=== PATIENT | female | born 1975 | race Caucasian/White ===

== ENCOUNTER 2023-11-05 05:51 | Emergency (ER) | payer MEDICAID ==
[~2023-11-05] VITALS: Ht 157.5 cm; Wt 67.3 kg
[~2023-11-05 05:51] MED LIST: 5-HY100C PO; DIPH25CA83 PO; NITR100C6 PO
[2023-11-05 06:03] VITALS: BP 144/100; PULSE 109; TEMP 98; O2SAT 99
[2023-11-05] MEDS ORDERED: ketorolac trometh. 30mg/ml inj. IV ONE (07:15)
[2023-11-05] MEDS ORDERED: ketorolac trometh inj. 60 MG/2 ML VIAL IM ONE (07:45)
[2023-11-05] MEDS: amoxicillin 250mg capsule PO ONE (08:20)
[2023-11-05 08:22] VITALS: RESP 18
[2023-11-05] MEDS: ketorolac trometh. 30mg/ml inj. IM ONE (08:22)
[2023-11-05] MEDS ORDERED: AMOX500C2 PO (08:32)
== END 2023-11-05 08:52 | disposition home or self-care (01) ==
LOC: ER 05:52
DX: K08.89 Other specified disorders of teeth and supporting structures (principal); F17.200 Nicotine dependence, unspecified, uncomplicated; Z79.899 Other long term (current) drug therapy
CPT/HCPCS: 96372; 99283; J1885

== ENCOUNTER 2023-12-21 07:41 | Inpatient (IN) | payer MEDICAID ==
[~2023-12-21] VITALS: Ht 157.5 cm; Wt 69.5 kg
[2023-12-21 08:02] VITALS: TEMP 97.8
[2023-12-21 08:46] LABS: BASOPHILS % (AUTO) 0.6 % (0-1); EOSINOPHILS # (AUTO) 0.1 X10'3 (0-0.9); EOSINOPHILS % (AUTO) 1.1 % (0-6); HEMATOCRIT 45.7 % (35.0-45.0); HEMOGLOBIN 15.1 g/dl (12.0-16.0); LYMPHOCYTES # (AUTO) 1.6 X10'3 (1.1-4.8); LYMPHOCYTES % (AUTO) 18.1 % (21-51); MEAN CORPUSCULAR HEMOGLOBIN 33.1 PG (27.0-31.0); MEAN CORPUSCULAR HGB CONC 33.1 g/dL (33.0-36.5); MEAN CORPUSCULAR VOLUME 99.9 FL (78-98); MEAN PLATELET VOLUME 8.9 FL (7.4-10.4); MONOCYTES # (AUTO) 0.6 X10'3 (0-0.9); MONOCYTES % (AUTO) 7.1 % (2-12); NEUTROPHILS # (AUTO) 6.4 X10'3 (1.8-7.7); NEUTROPHILS % (AUTO) 73.1 % (42-75); PLATELET COUNT 208 X10'3 (140-440); RED BLOOD COUNT 4.57 X10'6 (4.20-5.60); RED CELL DISTRIBUTION WIDTH 14.7 % (11.5-14.5); WHITE BLOOD COUNT 8.7 X10'3 (4.5-11.0)
[2023-12-21] MEDS: aspirin 325mg tablet PO ONE (08:55)
[2023-12-21] MEDS ORDERED: LORazepam 2 mg/ml vial IM ONE (08:55)
[2023-12-21 09:16] LABS: ALANINE AMINOTRANSFERASE 34 U/L (12-78); ALBUMIN 3.2 G/DL (3.4-5.0); ALBUMIN/GLOBULIN RATIO 0.8 (1.1-1.5); ALKALINE PHOSPHATASE 98 IU/L (46-116); ANION GAP 9 (8-16); ASPARTATE AMINO TRANSFERASE 30 U/L (10-37); BILIRUBIN,DIRECT 0.2 MG/DL (0-0.3); BILIRUBIN,TOTAL 0.7 MG/DL (0.1-1.0); BLOOD UREA NITROGEN 10 MG/DL (7-18); BUN/CREATININE RATIO 11.5 (10.0-20.0); CALCIUM 8.8 MG/DL (8.5-10.1); CHLORIDE 104 MMOL/L (99-107); CREATININE 0.87 MG/DL (0.40-0.90); GLUCOSE 121 MG/DL (70-104); POTASSIUM 4.1 MMOL/L (3.5-5.1); PRO BRAIN NATRIURETIC PEPTIDE 7462 PG/ML (0-125); SODIUM 141 MMOL/L (135-145); THYROID STIMULATING HORMONE 5.03 ulU/ml (0.34-4.50); TOTAL CARBON DIOXIDE 28.3 MMOL/L (24-32); eCRCL 63 ML/MIN; eGFR 70 ML/MIN
[2023-12-21] MEDS ORDERED: enoxaparin 100mg/ml syringe SUBCUT ONE (09:35)
[2023-12-21] MEDS ORDERED: iohexol 350MG/ML 100ml bottle IV ONE (09:41)
[2023-12-21] MEDS: LORazepam 2 mg/ml vial IM ONE (09:42)
[2023-12-21] MEDS: nitroGLYCERIN 0.4mg/hour patch TD ONE (09:54)
[2023-12-21] MEDS: enoxaparin 60mg/0.6ml syringe SUBCUT ONE (09:55)
[2023-12-21] MEDS: enalaprilat dihydrate 2.5mg/2ml vial IV ONE (09:59)
[2023-12-21 10:24] LABS: URINE AMPHETAMINE SCREEN POSITIVE (Neg); URINE BARBITUATE SCREEN NEGATIVE (Neg); URINE BENZODIAZEPINES SCREEN NEGATIVE (Neg); URINE CANNABINOID SCREEN NEGATIVE (Neg); URINE COCAINE SCREEN POSITIVE (Neg); URINE METHADONE SCREEN NEGATIVE (Neg); URINE OPIATE SCREEN NEGATIVE (Neg); URINE PHENCYCLIDINE SCREEN NEGATIVE (Neg)
[2023-12-21 10:57] LABS: HCG SERUM QL NEGATIVE
[2023-12-21] MEDS ORDERED: aminophylline 250mg/10ml inj. IV PRN (12:35)
[2023-12-21] MEDS ORDERED: haloperidol 5mg tablet PO PRN (12:35)
[2023-12-21] MEDS ORDERED: potassium Cl 20 mEq SR tablet PO PRN ×2 (12:35)
[2023-12-21] MEDS ORDERED: mag hydrox/Alum hydrox/simeth 30ml oral suspension PO PRN (12:35)
[2023-12-21] MEDS ORDERED: regadenoson 0.4mg/5ml syringe IV PRN (12:35)
[2023-12-21] MEDS ORDERED: magnesium 2GM in 50ml NS 50 ML IV PRN (12:35)
[2023-12-21] MEDS ORDERED: metoprolol tartrate 1mg/ml inj IV PRN (12:35)
[2023-12-21] MEDS ORDERED: potassium Cl 40MEQ/1/2NS 520ml 520 ML IV PRN (12:35)
[2023-12-21] MEDS ORDERED: nitroGLYCERIN 0.4mg SUBLingual tab SL PRN (12:35)
[2023-12-21] MEDS ORDERED: ondansetron/PF 4mg/2ml inj IV PRN (12:35)
[2023-12-21] MEDS ORDERED: magnesium 4gm in 100ml NS 100 ML IV PRN (12:35)
[2023-12-21] MEDS ORDERED: LORazepam 1 MG tablet PO PRN (12:35)
[2023-12-21 13:24] VITALS: BP 125/89; PULSE 99; RESP 14; O2SAT 100
[2023-12-21] MEDS: acetaminophen 325mg tablet PO PRN (16:49)
[2023-12-21] MEDS ORDERED: enoxaparin 40mg/0.4ml syringe SQ SCH (20:00)
[2023-12-21] MEDS ORDERED: K and/or MAG REPLACEMENT MC SCH (20:00)
[2023-12-21] MEDS ORDERED: docusate sod 100mg capsule PO SCH (20:00)
[2023-12-21] MEDS ORDERED: carVEDilol 3.125mg tablet PO SCH (20:00)
[2023-12-22] MEDS ORDERED: nicotine 14mg patch - 24hr TD SCH (08:00)
[2023-12-22] MEDS ORDERED: losartan 50mg tablet PO SCH (08:00)
[2023-12-23 14:31] LABS: HBSAG SCREEN Negative (Negative); HEP B CORE AB, IGM Negative (Negative); HEP B CORE AB, TOT Negative (Negative)
== END 2023-12-21 18:05 | disposition left against medical advice (07) | DRG 194 ==
LOC: ER 07:44 → ED HOLD 12:46 → PCU 3S 16:16
PROVIDERS: ADMIT Family Medicine; ATTEND Family Medicine
PROC: B32T1ZZ Computerized Tomography (CT Scan) of Left Pulmonary Artery using Low Osmolar Contrast (ICD-10-PCS; principal; 2023-12-21)
PROC: B3201ZZ Computerized Tomography (CT Scan) of Thoracic Aorta using Low Osmolar Contrast (ICD-10-PCS; 2023-12-21)
PROC: B32S1ZZ Computerized Tomography (CT Scan) of Right Pulmonary Artery using Low Osmolar Contrast (ICD-10-PCS; 2023-12-21)
DX: I11.0 Hypertensive heart disease with heart failure (principal); I27.20 Pulmonary hypertension, unspecified; I50.21 Acute systolic (congestive) heart failure; E06.3 Autoimmune thyroiditis; F15.10 Other stimulant abuse, uncomplicated; F14.10 Cocaine abuse, uncomplicated; F10.10 Alcohol abuse, uncomplicated; F17.210 Nicotine dependence, cigarettes, uncomplicated; Z53.21 Procedure and treatment not carried out due to patient leaving prior to being seen by health care provider; Z87.442 Personal history of urinary calculi
CPT/HCPCS: 36415; 71045; 71275; 80048; 80076; 80305; 83880; 84443; 84484; 84703; 85025; 86704; 86705; 87081; 87340; 93005; 93306; 96372; 96374; 99285; G0378; J1650; J2060; J3490; J7030; Q9967

== ENCOUNTER 2024-12-10 20:05 | Inpatient (IN) | payer MEDICAID ==
[~2024-12-10] VITALS: Ht 160 cm; Wt 78.0 kg
--- NOTE | 2024-12-10 20:16 | ELECTROCARDIOGRAPH REPORT ---
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
[2024-12-10 20:38] LABS: BASOPHILS # (AUTO) 0.1 X10'3 (0-0.2); BASOPHILS % (AUTO) 0.7 % (0-1); EOSINOPHILS # (AUTO) 0.1 X10'3 (0-0.9); EOSINOPHILS % (AUTO) 0.9 % (0-6); HEMATOCRIT 47.9 % (35.0-45.0); HEMOGLOBIN 16.1 g/dl (12.0-16.0); LYMPHOCYTES # (AUTO) 2.7 X10'3 (1.1-4.8); LYMPHOCYTES % (AUTO) 29.4 % (21-51); MEAN CORPUSCULAR HEMOGLOBIN 31.9 PG (27.0-31.0); MEAN CORPUSCULAR HGB CONC 33.6 g/dL (33.0-36.5); MEAN PLATELET VOLUME 9.1 FL (7.4-10.4); MONOCYTES # (AUTO) 0.6 X10'3 (0-0.9); MONOCYTES % (AUTO) 6.6 % (2-12); NEUTROPHILS # (AUTO) 5.7 X10'3 (1.8-7.7); NEUTROPHILS % (AUTO) 62.4 % (42-75); PLATELET COUNT 190 X10'3 (140-440); RED BLOOD COUNT 5.04 X10'6 (4.20-5.60); RED CELL DISTRIBUTION WIDTH 16.6 % (11.5-14.5); WHITE BLOOD COUNT 9.2 X10'3 (4.5-11.0)
--- NOTE | 2024-12-10 20:48 | Physician Documentation ---
History of Present Illness ~ Chief Complaint: Shortness of Breath Stated Complaint: SOB Time Seen by MD: 20:35 Primary Medical Doctor: Juan Diego Source: patient Mode of Arrival: POV Exam Limitations: no limitations HPI Chief Complaint: Shortness a breath Caveat: None Independent Historians: None History of Present Illness: Patient is a 49-year-old woman with history of significant past alcohol use and tobacco use. Patient states that she had a cardiac echo done at [facility] earlier today in the ski technician told her to immediately go to the ER. Set up going to [facility] she decided to come here. Patient has been experiencing severe lower extremity edema and discoloration of her legs and feet for six months. Patient has had months of shortness a breath that has been getting progressively worse. Over the last two weeks her breathing has gotten severely difficult with any little exertion. Patient denies any chest pain. Patient has had a cough for one month that she describes as tight with the occasional yellow sputum. No fever. Patient leak currently states that she drinks 1-2 shots of alcohol a day and occasional cigarette. Review of systems: All systems were reviewed and are negative except for what is indicated in the history of present illness. Past Medical History: Tobacco use, alcoholism, coronary artery disease, acute [place] Past Surgical History: Noncontributory Social History: Alcohol use, tobacco use Medications: Reviewed as documented Nursing Notes Allergies: Reviewed as documented in Nursing Notes Medication Reconciliation Allergies: Coded Allergies: No Known Allergies (Unverified , 12/21/23) Scheduled Furosemide* (Lasix*), 1 TAB PO DAILY, (Reported) Methimazole (methimazole tablet), 2 TAB PO DAILY, (Reported) Naltrexone Hcl (Naltrexone Hcl), 1 TAB PO DAILY, (Reported) Nicotine (Nicotine), 1 PATCH TOP DAILY, (Reported) Tiotropium [place] (Spiriva), 1 CAP INH DAILY, (Reported) levothyroxine sodium* (Synthroid*), 5 TAB PO DAILY, (Reported) Miscellaneous Medications Albuterol (Albuterol), (Reported) Epinephrine (Primatene Mist), (Reported) Tiotropium Br/Olodaterol HCl (Stiolto Respimat Inhal Foster), (Reported) Varenicline Tartrate (Varenicline), (Reported) Past Medical History Past Medical History: Anemia, Kidney Stones, Thyroid (unspecified), MRSA Abscess Past Surgical History: noncontributory Patient History: Graves' disease MOTHER, Age: 75 Ileana thyroiditis MOTHER, Age: 75 Alcohol Use: Abuse Drug Use: cocaine Lives with: Family Lives In: Home Occupation: employed Review of Systems All Other Systems at this time: Reviewed and Negative ROS Patient denies any other acute symptoms other than above. All other systems are negative Physical Exam Vital Signs: RN Vital Signs have been reviewed: Yes, Temperature: 98.5, Source: Temporal, Heart Rate: 106, Respiratory Rate: 20, BP: 169/107, Pulse Oximetry: 98, Weight: 65.200 Oxygen Flow Rate: 0 Pulse Oximetry Reflects: adequate oxygenation Physical Exam General Appearance: MILD DISTRESS, ACUTELY AND CHRONICALLY ILL-APPEARING HEENT: Normal OP, moist oral mucosa, PERRL, EOMI Neck: supple, normal ROM, trachea midline Pulmonary: No respiratory distress, CTA, BS equal Cardiac: 4/6 SYSTOLIC MURMUR, TACHYCARDIC, REGULAR RHYTHM, NO RUB OR GALLOP GI: nondistended, soft, nontender, normal bowel sounds, no guarding, no rebound Extremities: DECREASED RANGE OF MOTION OF BOTH LOWER EXTREMITIES SECONDARY TO SWELLING. PATIENT'S LEGS AND FEET ARE A DEEP VIOLACEOUS COLOR FROM THE HIPS GLEN N. TOES ARE PURPLE. SKIN IS WARM TO TOUCH. NO BLISTERS OR RASHES. Skin: intact, dry, warm, no rashes, SEE EXTREMITY EXAM ABOVE FOR COLOR Neuro: AAOx3, speech is clear, no focal motor weakness Psych: normal affect, good eye contact, no apparent hallucination, normal speech Progress Results/Orders Results/Orders Orders - BARRY DUPONT MD Chest,Single View (12/10/24 20:08) Monitor (12/10/24 20:08) Saline Lock (12/10/24 20:08) Oxygen (12/10/24 20:08) Hs Troponin I W Calculations (12/10/24 23:08) Vl Venous (12/10/24 21:59) Page Hospitalist (12/10/24 22:18) Fill Out Med Reconciliation (12/10/24 22:18) Completed Orders - BARRY DUPONT MD Chest,Single View (12/10/24 20:08) Cbc/Diff (12/10/24 20:08) PBNP (12/10/24 20:08) Electrocardiogram (12/10/24 20:08) Hs Troponin I W Calculations (12/10/24 20:08) Hs Troponin I W Calculations (12/10/24 22:08) Pt Inr (12/10/24 20:41) PTT (12/10/24 20:41) CMP (12/10/24 20:22) Ua With Microscopic (12/10/24 21:00) Ceftriaxone/Y9w-Huyrodcf 1gm (Rocephin 1 (12/10/24 22:20) Vital Signs 12/10/24 12/10/24 12/10/24 20:24 21:07 21:15 Temp 98.5 98.5 Pulse 106 103 Resp 20 15 16 B/P (MAP) 169/107 157/118 (131) Pulse Ox 98 100 O2 Flow Rate 0 0 Laboratory Tests Test 12/10/24 20:22 12/10/24 20:58 12/10/24 21:00 White Blood Count 9.2 Red Blood Count 5.04 Hemoglobin 16.1 H Hematocrit 47.9 H Mean Corpuscular Volume 95.0 Mean Corpuscular Hemoglobin 31.9 H Mean Corpuscular Hemoglobin Concent 33.6 Red Cell Distribution Width 16.6 H Platelet Count 190 Mean Platelet Volume 9.1 Neutrophils (%) (Auto) 62.4 Lymphocytes (%) (Auto) 29.4 Monocytes (%) (Auto) 6.6 Eosinophils (%) (Auto) 0.9 Basophils (%) (Auto) 0.7 Neutrophils # (Auto) 5.7 Lymphocytes # (Auto) 2.7 Monocytes # (Auto) 0.6 Eosinophils # (Auto) 0.1 Basophils # (Auto) 0.1 CBC Comment Sodium Level 143 Potassium Level 4.4 Chloride Level 106 Carbon Dioxide Level 30.3 Anion Gap 7 L Blood Urea Nitrogen 22 H Creatinine 1.41 H Estimated GFR/1.73 m2 40 BUN/Creatinine Ratio 15.6 Glucose Level 103 Calcium Level 8.8 Total Bilirubin 0.7 Aspartate Amino Transf (AST/SGOT) 38 H Alanine Aminotransferase (ALT/SGPT) 29 Alkaline Phosphatase 148 H Troponin I High Sensitivity 32 31 Pro-B-Type Natriuretic Peptide 47428 H Total Protein 6.6 Albumin 3.1 L Globulin 3.5 Albumin/Globulin Ratio 0.9 L Chemistry Comments Prothrombin Time 11.9 INR International Normalized Ratio 1.2 Activated Partial Thromboplast Time 28 Coagulation Comments Troponin I High Sens Percent Delta 3 Troponin I Hi Sens Absolute Change -1 Urine Specimen Description Cln catch midstream Urine Color Yellow Urine Clarity Clear Urine pH 6.0 Urine Specific [place] >=1.030 Urine Protein 100 H Urine Glucose (UA) Negative Urine Ketones Negative Urine Occult Blood Small Urine Nitrite Positive H Urine Bilirubin Negative Urine Urobilinogen 0.2 Urine Leukocyte Esterase Negative Urine RBC 0-2 Urine WBC 5-10 H Urine Squamous Epithelial Cells Few Urine Transitional Epithelial Cells Few Urine Bacteria 4+ Urine Mucus Few Volume Urine Centrifuged 10 ml Urine Comment Drug Screen Comment Medical Decision Making Additional info obtained from: old records Findings Differential diagnosis includes but is not limited to: DVT, CONGESTIVE HEART FAILURE, VALVULAR HEART DISEASE, ACUTE KIDNEY INJURY, HEPATIC FAILURE EKG independent interpretation: Performed at 8:13 p.m.. Sinus tachycardia, heart rate 105 left atrial enlargement, RVH, nonspecific ST changes Chest x-ray, single view, indication: SHORTNESS OF THE BREATH Independent interpretation: Cardiomegaly, mild pulmonary vascular congestion, no pleural effusion. Laboratory data independent interpretation: CBC: CBC is unremarkable. Hemoglobin is mildly elevated at 16.1 and hematocrit 47.9 CMP: Remarkable for elevated BUN of 22 and elevated creatinine of 1.41. Toxicology: 1st troponin: 31 Pro BNP: 16410 Urinalysis: Emergency department course/medical decision-making: Patient presents with dyspnea and severe dyspnea on exertion. Patient appears to be in congestive heart failure although she is not requiring oxygen. [facility] admission I and cardiac echo in the morning. Test results and treatment plan reviewed with the patient. Incidentally the patient appears to have a urinary tract infection. Patient will be given IV Rocephin. Patient isn't septic. Test results and treatment plan reviewed with the patient. Consultation/communications: 10:50 p.m.: Case discussed with the hospitalist resident, Dr. Muir. She will evaluate the patient for admission. Departure Time of Disposition: 22:17 Disposition: ADMITTED INPATIENT Admitted to Inpatient Unit: to hospitalist Admission Level of Care: Med/Surg with Tele Impression: Primary Impression: Acute congestive heart failure Qualified Codes: I50.21 - Acute systolic (congestive) heart failure Additional Impression: Urinary tract infection Qualified Codes: N39.0 - Urinary tract infection, site not specified Condition: Guarded Referrals: NO PRIMARY CARE PROVIDER (PCP) Education Educated: Patient Educated regarding: diagnosis, treatment Signature Scribe Signature: No scribe Attestation: No scribe BARRY DUPONT MD Dec 10, 2024 20:48
[2024-12-10 20:53] LABS: ALBUMIN 3.1 G/DL (3.4-5.0); ANION GAP 7 (8-16); BLOOD UREA NITROGEN 22 MG/DL (7-18); BUN/CREATININE RATIO 15.6 (10.0-20.0); CALCIUM 8.8 MG/DL (8.5-10.1); CHLORIDE 106 MMOL/L (99-107); CREATININE 1.41 MG/DL (0.40-0.90); GLUCOSE 103 MG/DL (70-104); POTASSIUM 4.4 MMOL/L (3.5-5.1); PRO BRAIN NATRIURETIC PEPTIDE 14126 PG/ML (0-125); SODIUM 143 MMOL/L (135-145); TOTAL CARBON DIOXIDE 30.3 MMOL/L (24-32); eCRCL 40 ML/MIN; eGFR 40 ML/MIN
--- NOTE | 2024-12-10 21:10 | RADIOLOGY REPORT ---
CHEST RADIOGRAPH Indication: CP Technique: Single frontal view of the chest was obtained COMPARISON: DI CHEST,SINGLE VIEW on DOS: 12/21/23 FINDINGS: Lines and Tubes: None Lungs: Clear Pleura: No effusion. No pneumothorax. Cardiomediastinal contours: Cardiomegaly. Bones: Unremarkable IMPRESSION: 1. Cardiomegaly
[2024-12-10 21:18] LABS: BILIRUBIN,URINE NEGATIVE (Neg); CLARITY,URINE CLEAR (Clear); COLOR,URINE YELLOW (Yellow); GLUCOSE, URINE NEGATIVE (Neg); KETONES,URINE NEGATIVE (Neg); LEUKOCYTE ESTERASE ,URINE NEGATIVE (Neg); NITRITES, URINE POSITIVE (Neg); OCCULT BLOOD,URINE SMALL (Neg); PROTEIN,URINE 100 mg/dl (Neg); UROBILINOGEN,URINE 0.2 E.U/dL (0.2-1.0)
[2024-12-10 21:22] LABS: ALANINE AMINOTRANSFERASE 29 U/L (12-78); ALBUMIN/GLOBULIN RATIO 0.9 (1.1-1.5); ALKALINE PHOSPHATASE 148 IU/L (46-116); ASPARTATE AMINO TRANSFERASE 38 U/L (10-37); BILIRUBIN,TOTAL 0.7 MG/DL (0.1-1.0); TOTAL PROTEIN 6.6 G/DL (6.4-8.2)
[2024-12-10 21:24] LABS: UA COLLECTION TYPE CLN CATCH MIDSTREAM
[2024-12-10 21:29] LABS: APTT 28 SECONDS (22-32); INR 1.2 INR; PROTHROMBIN TIME 11.9 SECONDS (9.0-12.0)
[2024-12-10 21:31] LABS: BACTERIA,URINE 4+ /HPF (Neg); MUCUS STRANDS FEW /LPF (Neg); RBC,URINE 0-2 /HPF (0-2); SQUAMOUS EPITHELIAL CELL,UR FEW /LPF (FEW); TRANSITIONAL EPI CELLS,URINE FEW /HPF
[2024-12-10] MEDS ORDERED: EPIN11.7 (21:34)
[2024-12-10] MEDS ORDERED: NICO-732 TOP (21:34)
[2024-12-10] MEDS ORDERED: FURO-150 PO (21:34)
[2024-12-10] MEDS ORDERED: TIOT4MIS3 (21:34)
[2024-12-10] MEDS ORDERED: VARE1TAB29 (21:34)
[2024-12-10] MEDS ORDERED: LEVO25TA2 PO (21:34)
[2024-12-10] MEDS ORDERED: ALBU17AE26 (21:34)
[2024-12-10] MEDS ORDERED: NALT50TA5 PO (21:34)
[2024-12-10] MEDS ORDERED: METH-1026 PO (21:34)
[2024-12-10] MEDS ORDERED: TIOT18CA3 INH (21:34)
[2024-12-10] MEDS ORDERED: potassium Cl 20 mEq SR tablet PO PRN ×2 (23:25)
[2024-12-10] MEDS ORDERED: morphine 2 MG/ML inj. syringe IV PRN (23:25)
[2024-12-10] MEDS ORDERED: magnesium sulf-water 2g/50mL 50 ML IV PRN (23:25)
[2024-12-10] MEDS ORDERED: acetaminophen 325mg tablet PO PRN (23:25)
[2024-12-10] MEDS ORDERED: dextrose 50%-water 50ml dispensing syringe IV PRN (23:25)
[2024-12-10] MEDS ORDERED: magnesium sulf-water 4G/100mL 100 ML IV PRN (23:25)
[2024-12-10] MEDS ORDERED: haloperidol lactate 5mg/ml inj IM PRN (23:25)
[2024-12-10] MEDS ORDERED: magnesium hydroxide 30ml (MOM) UD suspension PO PRN (23:25)
[2024-12-10] MEDS ORDERED: haloperidol 5mg tablet PO PRN (23:25)
[2024-12-10] MEDS ORDERED: mag hydrox/Alum hydrox/simeth 30ml oral suspension PO PRN (23:25)
[2024-12-10] MEDS ORDERED: potassium Cl 40MEQ/1/2NS 520ml 520 ML IV PRN (23:25)
[2024-12-10] MEDS ORDERED: LORazepam 2 mg/ml vial IV PRN (23:25)
[2024-12-10 23:26] LABS: URINE AMPHETAMINE SCREEN POSITIVE (Neg); URINE BARBITUATE SCREEN NEGATIVE (Neg); URINE BENZODIAZEPINES SCREEN NEGATIVE (Neg); URINE CANNABINOID SCREEN NEGATIVE (Neg); URINE COCAINE SCREEN NEGATIVE (Neg); URINE METHADONE SCREEN NEGATIVE (Neg); URINE OPIATE SCREEN NEGATIVE (Neg); URINE PHENCYCLIDINE SCREEN NEGATIVE (Neg)
[2024-12-10] MEDS ORDERED: iohexol 350MG/ML 100ml bottle IV ONE (23:37)
--- NOTE | 2024-12-10 23:38 | HISTORY AND PHYSICAL-Residence ---
History & Physical Providers to CC Resident Creating Document: JERRELL GOMEZ, RES CC: ROSALIE MOREIRA MD ~ History of Present Illness Primary Medical Doctor: Juan Diego Reason for Admit\Complaint: Worsening shortness of breaths on exertion History of Present Illness A 43-year-old female with a past medical history of COPD, heart failure with reduced ejection fraction, HTN presented to the ED in view of abnormal echo findings that was done at [facility]. Patient underwent echo this morning which showed hypokinesis/akinesis in one of the heart chambers that the patient is unable to recall. And patient was advised to see emergency department. Patient endorses worsening shortness of breaths on exertion to the point that she feels short of breath walking less than block in contrast to while being able to walk for 6-7 blocks before feeling short of breaths. Patient endorses orthopnea, PND and decreased urine output. Patient denies burning sensation abdominal pain, fever. Patient has while issues edematous bluish discolored lower extremities and upper extremities over the last three weeks. This has been on and off that would go away with no intervention but has been constantly present for the last three weeks. Allergies: Coded Allergies: No Known Allergies (Unverified , 12/21/23) Home Medications Home Medications Active Reported Synthroid* (Levothyroxine Sodium) 25 Mcg Tablet 5 Tab PO DAILY Spiriva (Tiotropium [place]) 18 Mcg Cap.w.dev 1 Cap INH DAILY Primatene Mist (Epinephrine) 0.125 Mg/Actuation Hfa.aer.ad Naltrexone Hcl 50 Mg Tablet 1 Tab PO DAILY methimazole tablet (Methimazole) 5 Mg Tablet 2 Tab PO DAILY Nicotine 21 Mg/24 Hour Patch.td24 1 Patch TOP DAILY Stiolto Respimat Inhal Arnold (Tiotropium Br/Olodaterol HCl) 2.5 Mcg-2.5 Mcg/Actuation Mist.inhal Varenicline (Varenicline Tartrate) 0.5 Mg (11)-1 Mg (42) Tab.ds.pk Albuterol 17 Gm Aerosol Past Medical History Past Medical History Ileana's and Graves disease, scheduled for thyroidectomy [place] COPD Heart failure with a reduced ejection fraction Prediabetes HTN Past Surgical History Surgical History Comment Dental surgeries Family History Family History: Graves' disease MOTHER, Age: 75 Ileana thyroiditis MOTHER, Age: 75 Past Social History Social History Comment Smokes one pack of cigarettes per day for the last 30 years, came down to 1-2 cigarettes per day for the last one month Drinks 1-2 Tequila shots every day Last drink was this morning Consumes methamphetamine yesterday Smoking: Non-Smoker Alcohol Use: Abuse Drug Use: Cocaine Lives with: Family Lives In: Home Occupation: employed ROS ROS All other systems reviewed in full and negative except for the pertinent positives mentioned in the HPI Exam Vitals: Vital Signs Date Time Temp Pulse Resp B/P (MAP) Pulse Ox O2 Delivery O2 Flow Rate FiO2 12/10/24 21:15 98.5 103 16 157/118 (131) 100 0 General: General: Alert, awake, oriented, not in acute distress HEENT: PERRLA, no icterus, pallor, lymphadenopathy, carotid bruit, absent multiple teeth Respiratory system: Bilateral vesicular breath sounds heard, bilateral basal Creps, crackles heard in bilateral all lung regions CVS: Sinus tachycardia, S1-S2 heard, grade 4/6 holosystolic murmur present in the mitral area that is radiating to the tricuspid area GI: Soft, nontender, no organomegaly, no guarding/rigidity, bowel sounds present Neuro: No focal neurological deficits present Extremities: Violaceous erythematous, 3+ pitting edema present in bilateral feet, blackish discoloration present, bluish discoloration and erythematous fingers present in bilateral upper extremities Skin: Warm and dry Diagnostic Data Last Recorded Lab Results: 12/10/24202112/10/242021 Diagnostic Data: Laboratory Tests Test 12/10/24 20:58 Prothrombin Time 11.9 SECONDS (9.0-12.0) INR International Normalized Ratio 1.2 INR Activated Partial Thromboplast Time 28 SECONDS (22-32) Coagulation Comments Advance Care Planning Advanced Care plannin - 30 Minutes (I spent 20 minutes discussing various resuscitative measures and the patient decided to be full code) Additional Plan Assessment: A 49-year-old female with a past medical history of heart failure with reduced ejection fraction, HTN, COPD presented to the ED with worsening shortness of breaths on exertion and abnormal echo findings at [facility] this morning. Patient is admitted for the evaluation management of acute on chronic heart failure with reduced ejection fraction. Plan: Acute on chronic heart failure with reduced ejection fraction, exacerbation AHA: Stage C, NYHA: Class III Chest x-ray: Cardiomegaly Elevated pro BNP, normal troponin levels, EKG revealing sinus tachycardia Received one time dose of IV Lasix 60 mg IV Lasix 40 mg b.i.d. Strict Is&Os, 1.2 L fluid restriction Daily weights Consider optimization with GDM T Follow up with repeat echo and probably might require cardiology consult in a.m. DVT lower extremities, under evaluation Decreased bilateral upper and lower extremity perfusion Follow up with arterial ultrasound and vascular ultrasound Prerenal VALERIO probably secondary to renal tubular stasis Elevated creatinine Continue to monitor BMP Asymptomatic bacteriuria Urinalysis positive for nitrites and WBC Tobacco use disorder Nicotine patch Alcohol use disorder Moderate alcohol withdrawal protocol IV thiamine, folic acid, multivitamin Substance abuse disorder Positive methamphetamines on U tox caseworker protective services consulted COPD DuoNeb p.r.n. HTN Continue to monitor vitals and start on losartan 50 mg if required Prediabetes Follow up with A1c Ileana/Graves disease Follow up with TSH Continue home dose of levothyroxine Follow up with lipid panel Code status: Full code Diet: Heart healthy DVT prophylaxis: Heparin 5000 subcu Disposition: Admit to PCU, follow up with echo, cardiology consult in a.m. Jerrell Gomez MD Internal Medicine, PGY 1 pt seen and evaluated Has CHF exacerbation Discussed need for med compliance and follow up Illicit drug use should be stopped as well. Agree with assessment and plan as documented Date of Service: Dec 10, 2024 Billing Provider: ROSALIE MOREIRA MD, SIVA, RES Dec 10, 2024 23:38 ROSALIE MOREIRA MD Dec 11, 2024 02:29
[2024-12-10] MEDS ORDERED: ipratropium/albuterol 3ml nebule NEB PRN (23:40)
[2024-12-11] VITALS (16 sets, daily range): BP systolic 106–152; BP diastolic 61–105; PULSE 83–103; RESP 15–30; TEMP 97–98; O2SAT 95–98
[2024-12-11 00:04] LABS: HEMOGLOBIN A1C 6.3 % (4.5-6.2)
[2024-12-11] MEDS: CefTRIAXone/D5W-Rocephin 1gm 50 ML IV ONE (00:10)
[2024-12-11] MEDS: nicotine 14mg patch - 24hr TD ONE (00:11)
[2024-12-11] MEDS: furosemide 10 MG/1 ML 10ml inj IV ONE (00:13)
[2024-12-11 00:14] LABS: THYROID STIMULATING HORMONE 53.73 ulU/ml (0.34-4.50)
--- NOTE | 2024-12-11 00:19 | VASCULAR REPORT ---
CLINICAL HISTORY: Bilateral lower extremity edema. TECHNIQUE: Color and duplex doppler imaging of the bilateral lower extremity veins was performed. Ves sally compression if possible was also performed. WID: COMPARISON: None FINDINGS: Mild subcutaneous edema in the bilateral lower extremities. Right Lower Extremity: Right common femoral vein: Normal compressibility and flow. Right femoral vein: Normal compressibility and flow. Right popliteal vein: Normal compressibility and flow. Proximal calf veins are normally compressible. Left Lower Extremity: Left common femoral vein: Normal compressibility and flow. Left femoral vein: Normal compressibility and flow. Left popliteal vein: Normal compressibility and flow. Proximal calf veins are normally compressible. IMPRESSION: 1. NO SONOGRAPHIC EVIDENCE FOR DEEP VENOUS THROMBOSIS IN THE BILATERAL LOWER EXTREMITY VEINS. 2. Mild subcutaneous edema in the bilateral lower extremities.
[2024-12-11] MEDS: PERFLUTREN PROTEIN-A MICROSPHR (Optison) 0.22 MG/ML 3ML VIAL IV ONE (00:20)
[2024-12-11 00:35] LABS: URINE HCG NEGATIVE (NEG)
--- NOTE | 2024-12-11 00:46 | VASCULAR REPORT ---
Bilateral Lower Extremity Arterial Duplex Clinical History: Lower extremity pain and discoloration Comparison: None Technique: Duplex Doppler evaluation including color Doppler and spectral/pulsed waveform analysis of the lower extremity arteries was performed. 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 No significant stenoses or occlusion. 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 No significant stenoses or occlusion. IMPRESSION: 1. No hemodynamically significant stenosis based on peak systolic velocity criteria. REFERENCE VALUES, [facility]) vascular Imaging Lab Criteria: Peak systolic velocity ranges (in cm/sec) are as follows: <150 cm/s - <20 % stenosis 150-200 cm/s - 20-49% stenosis 200-300 cm/s - 50-75% stenosis >300 cm/s -> 75% stenosis
[2024-12-11 01:21] LABS: BASOPHILS # (AUTO) 0.1 X10'3 (0-0.2); BASOPHILS % (AUTO) 1.1 % (0-1); EOSINOPHILS # (AUTO) 0.1 X10'3 (0-0.9); HEMATOCRIT 49.5 % (35.0-45.0); HEMOGLOBIN 16.7 g/dl (12.0-16.0); LYMPHOCYTES # (AUTO) 2.5 X10'3 (1.1-4.8); LYMPHOCYTES % (AUTO) 30.9 % (21-51); MEAN CORPUSCULAR HEMOGLOBIN 31.8 PG (27.0-31.0); MEAN CORPUSCULAR HGB CONC 33.7 g/dL (33.0-36.5); MEAN CORPUSCULAR VOLUME 94.4 FL (78-98); MEAN PLATELET VOLUME 8.5 FL (7.4-10.4); MONOCYTES # (AUTO) 0.5 X10'3 (0-0.9); MONOCYTES % (AUTO) 6.7 % (2-12); NEUTROPHILS # (AUTO) 4.9 X10'3 (1.8-7.7); NEUTROPHILS % (AUTO) 60.3 % (42-75); PLATELET COUNT 170 X10'3 (140-440); RED BLOOD COUNT 5.24 X10'6 (4.20-5.60); RED CELL DISTRIBUTION WIDTH 16.4 % (11.5-14.5); WHITE BLOOD COUNT 8.1 X10'3 (4.5-11.0)
--- NOTE | 2024-12-11 01:30 | RADIOLOGY REPORT ---
CTA Chest with intravenous contrast INDICATION: PE COMPARISON: CT CTA CHEST PE on DOS: 12/21/23 TECHNIQUE: Multidetector spiral CTA of the chest was performed of the chest with intravenous contrast . PULMONARY ANGIOGRAPHY PROTOCOL was utilized using a bolus-tracking technique centered on the main p ulmonary artery. Axial, coronal and sagittal multiplanar and MIP reformats were performed. Radiation Dose : 1. Chest: CTDI volume is 19.39 mGy. Dose-length product is 537.58 mGy*cm The dose indicators for CT are the volume Computed Tomography (CT) Dose Index (CTDIvol) and the Dose Length Product (DLP), and are measured in units of mGy and mGy-cm, respectively. These indicators are not patient dose, but values generated from the CT scanner acquisition factors. The report includes radiation exposure data for exposures received during this examination. Findings: Pulmonary artery: No pulmonary embolism. The main pulmonary artery is dilated, measuring 4.4 cm and the ascending thoracic aorta measures 4.0 cm. Lower neck: Normal thyroid. Lungs: No focal consolidation, pleural effusion or pneumothorax. Heart/Vascular Structures: Cardiomegaly. No pericardial effusion. Lymph Nodes: No adenopathy Musculoskeletal: No acute osseous abnormality. Soft tissues: Normal. Upper abdomen: Shotty retroperitoneal lymphadenopathy. Limited portions of the upper abdomen are othe rwise unremarkable. IMPRESSION: 1. No pulmonary embolism. 2. Cardiomegaly and dilated main pulmonary artery. 3. Shotty retroperitoneal lymphadenopathy.
[2024-12-11 01:35] LABS: ALBUMIN 3.1 G/DL (3.4-5.0); ANION GAP 10 (8-16); BLOOD UREA NITROGEN 23 MG/DL (7-18); BUN/CREATININE RATIO 17.6 (10.0-20.0); CALCIUM 8.6 MG/DL (8.5-10.1); CHLORIDE 103 MMOL/L (99-107); CHOL/HDL RATIO 2.7 (0.00-4.99); CHOLESTEROL 147 MG/DL (0-200); CREATININE 1.31 MG/DL (0.40-0.90); GLUCOSE 107 MG/DL (70-104); HDL CHOLESTEROL 55 MG/DL (35-60); LDL CHOLESTEROL 68 MG/DL (50-100); MAGNESIUM 1.4 MG/DL (1.5-2.4); POTASSIUM 3.7 MMOL/L (3.5-5.1); SODIUM 139 MMOL/L (135-145); TOTAL CARBON DIOXIDE 26.4 MMOL/L (24-32); TRIGLYCERIDES 114 MG/DL (20-135); eCRCL 43 ML/MIN; eGFR 43 ML/MIN
[2024-12-11] MEDS: HYDROcodone/acetaminophen 5mg/325mg tablet PO PRN (03:24)
[2024-12-11] MEDS: ondansetron/PF 4mg/2ml inj IV PRN (06:57)
[2024-12-11] MEDS: K and/or MAG REPLACEMENT MC SCH (08:00)
[2024-12-11] MEDS: docusate sod 100mg capsule PO SCH (08:00)
[2024-12-11] MEDS ORDERED: ipratropium/albuterol 3ml nebule NEB PRN (08:45)
[2024-12-11] MEDS: levoTHYROXINE 25mcg tablet PO SCH (08:58)
[2024-12-11] MEDS: thiamine 100mg/ml 2ml inj. IV SCH (08:58)
[2024-12-11] MEDS: furosemide 10 MG/1 ML 10ml inj IV SCH (08:59)
[2024-12-11] MEDS: heparin, porcine 5000 units/ml vial SQ SCH (09:00)
--- NOTE | 2024-12-11 09:01 | VASCULAR REPORT ---
Bilateral Upper Extremity Arterial Duplex Clinical History: Cold hands Comparison: VASC VL ARTERIAL on DOS: 12/10/24 Technique: Duplex Doppler evaluation including color Doppler and spectral/pulsed waveform analysis of the upper extremity arteries was performed. Findings: RIGHT: Peak systolic velocities are as follows: Subclavian 76 cm/s Axillary 46 cm/s Brachial 44 cm/s Prox Radial 56 cm/s Distal Radial 33 cm/s Prox ulnar 57 cm/s Distal Ulnar 23 cm/s The waveforms are multiphasic. LEFT: Peak systolic velocities are as follows: Subclavian 67 cm/s Axillary 44 cm/s Brachial 61 cm/s Prox Radial 38 cm/s Distal Radial 20 cm/s Prox ulnar 34 cm/s Distal Ulnar 14 cm/s The waveforms are multiphasic. IMPRESSION: No hemodynamically significant stenosis based on peak systolic velocity criteria. REFERENCE VALUES, [facility]) vascular Imaging Lab Criteria: Peak systolic velocity rang es (in cm/sec) are as follows: <150 cm/s - <20 % stenosis 150-200 cm/s - 20-49% stenosis 200-300 cm/s - 50-75% stenosis >300 cm/s -> 75% stenosis
[2024-12-11] MEDS: folic acid 1mg/0.2ml inj IV SCH (10:58)
[2024-12-11] MEDS: losartan 25mg tablet PO SCH (10:59)
[2024-12-11] MEDS: ipratropium/albuterol 3ml nebule NEB SCH (11:00)
[2024-12-11] MEDS ORDERED: methimazole 5mg tablet PO SCH ×3 (13:05→13:06)
[2024-12-11 17:55] LABS: FREE T4 (FREE THYROXINE) 0.57 NG/DL (0.73-1.40)
--- NOTE | 2024-12-11 18:00 | PROGRESS NOTE- Residence ---
Progress Note - Resident Providers to CC Resident Creating Document: PHYLICIA MONTANEZ, RES ~ Antibiotic Timeout Antibiotic Ordered?: No Subjective Patient was seen and examined at the bedside. Patient mentions that she has had an EF of 40% last urine shown but a repeat echocardiogram at [facility] [place] showed right ventricle reduced systolic function however left ventricle ejection fraction is 55-60%. U tox is positive for amphetamines. She is currently on alcohol withdrawal protocol, last drink was one day ago. denies taking naltrexone at home anymore. She has erythema in the hands and feet which he mentions is related to warmth or cold suggesting of Raynaud's phenomenon. She takes both methimazole and levothyroxine for the management of Ileana thyroiditis but does not have a date yet for resection of her thyroid. TSH is 53.73 and she has a asymptomatic bacteriuria with positive nitrites and 5-10 WBC in urine Objective Vital Signs Date Time Temp Pulse Resp B/P (MAP) Pulse Ox O2 Delivery O2 Flow Rate FiO2 12/11/24 15:00 97.3 95 22 106/61 (76) 98 Nasal Cannula 2.0 12/11/24 14:31 28 Result Diagram: 12/11/24 0114 12/11/24 0114 General: Alert, awake, oriented, not in acute distress HEENT: PERRLA, no icterus, pallor, lymphadenopathy, carotid bruit, absent multiple teeth Respiratory system: Decreased breath sounds, mild wheezing CVS: Sinus tachycardia, S1-S2 heard, grade 4/6 holosystolic murmur present in the mitral area that is radiating to the tricuspid area GI: Soft, nontender, no organomegaly, no guarding/rigidity, bowel sounds present Neuro: No focal neurological deficits present Extremities: Violaceous erythematous, 3+ pitting edema present in bilateral feet, blackish discoloration present, bluish discoloration and erythematous fingers present in bilateral upper extremities Skin: Warm and dry Coagulation Studies Laboratory Tests Test 12/10/24 20:58 Prothrombin Time 11.9 SECONDS (9.0-12.0) INR International Normalized Ratio 1.2 INR Activated Partial Thromboplast Time 28 SECONDS (22-32) Coagulation Comments Assessment Assessment A 43-year-old female with a past medical history of COPD, heart failure with reduced ejection fraction, HTN presented to the ED in view of abnormal echo findings that was done at [facility]. Patient underwent echo this morning which showed hypokinesis/akinesis in one of the heart chambers that the patient is unable to recall. And patient was advised to see emergency department. Patient endorses worsening shortness of breaths on exertion to the point that she feels short of breath walking less than block in contrast to while being able to walk for 6-7 blocks before feeling short of breaths. Patient endorses orthopnea, PND and decreased urine output. Patient denies burning sensation abdominal pain, fever. Patient has while issues edematous bluish discolored lower extremities and upper extremities over the last three weeks. This has been on and off that would go away with no intervention but has been constantly present for the last three weeks. Plan Plan Acute hypoxemic respiratory failure Acute on chronic heart failure with reduced ejection fraction, exacerbation AHA: Stage C, NYHA: Class III Chest x-ray: Cardiomegaly. CTA ruled out PE Elevated pro BNP 58464, normal troponin levels, EKG revealing sinus tachycardia Received one time dose of IV Lasix 60 mg IV Lasix 40 mg b.i.d. Strict Is&Os, 1.2 L fluid restriction Daily weights GDMT, Started on losartan 25 mg, carvedilol 6.25 mg spironolactone 25 mg Repeat echo at [facility] shows LVEF of 55% and severely reduced systolic function of the right ventricle Ruled out DVT lower extremities Decreased bilateral upper and lower extremity perfusion Raynaud's phenomenon arterial ultrasound and vascular ultrasound unremarkable Prerenal VALERIO probably secondary to renal tubular stasis versus cardiorenal syndrome Hypomagnesemia Elevated creatinine Continue to monitor BMP Asymptomatic bacteriuria Urinalysis positive for nitrites and WBC. Denies symptoms. Continue monitoring Tobacco use disorder Nicotine patch Alcohol use disorder Moderate alcohol withdrawal protocol. Not actively withdrawing today IV thiamine, folic acid, multivitamin Substance abuse disorder Positive methamphetamines on U tox multicultural services librarian consulted. She is interesting in quitting use of recreational drugs. Open for resources. Substance abuse navigator COPD DuoNejaqueline p.r.n. HTN Started on losartan 25 mg, carvedilol 6.25 mg spironolactone 25 mg Prediabetes A1c 6.3 Ileana/Graves disease TSH 43.73 with low T4 Continue home dose of levothyroxine and methimazole. Follow up with [facility] for thyroid resection surgery. Lipid panel is unremarkable Code status: Full code Diet: Heart healthy DVT prophylaxis: Heparin 5000 subcu Disposition: Continue care in PCU. Phylicia Sabillon MD Internal Medicine, PGY 1 Seen and examined with resident at bedside agree with the above Date of Service: Dec 11, 2024 Billing Provider: JAKOB EVANS MD Common Visit Codes: [id number] INP/OBS CARE(HIGH) PHYLICIA MONTANEZ, RES Dec 11, 2024 18:00 JAKOB EVANS MD Dec 13, 2024 11:57
[2024-12-11] MEDS: carvedilol 6.25mg tablet PO SCH (19:37)
[2024-12-11] MEDS: guaiFENesin/DM 10ml UD oral syrup PO PRN (20:12)
[2024-12-12] VITALS (11 sets, daily range): BP systolic 105–133; BP diastolic 64–86; PULSE 72–99; RESP 13–18; TEMP 97.5–97.8; O2SAT 94–99
[2024-12-12 05:14] LABS: BASOPHILS # (AUTO) 0.1 X10'3 (0-0.2); EOSINOPHILS # (AUTO) 0.2 X10'3 (0-0.9); MONOCYTES # (AUTO) 0.6 X10'3 (0-0.9); MONOCYTES % (AUTO) 7.8 % (2-12); WHITE BLOOD COUNT 7.3 X10'3 (4.5-11.0)
[2024-12-12 05:16] LABS: EOSINOPHILS % (AUTO) 2.5 % (0-6); HEMATOCRIT 46.4 % (35.0-45.0); HEMOGLOBIN 15.7 g/dl (12.0-16.0); LYMPHOCYTES # (AUTO) 2.1 X10'3 (1.1-4.8); LYMPHOCYTES % (AUTO) 28.5 % (21-51); MEAN CORPUSCULAR HEMOGLOBIN 32.3 PG (27.0-31.0); MEAN CORPUSCULAR HGB CONC 33.9 g/dL (33.0-36.5); MEAN CORPUSCULAR VOLUME 95.3 FL (78-98); NEUTROPHILS # (AUTO) 4.4 X10'3 (1.8-7.7); NEUTROPHILS % (AUTO) 60.2 % (42-75); PLATELET COUNT 158 X10'3 (140-440); RED BLOOD COUNT 4.87 X10'6 (4.20-5.60); RED CELL DISTRIBUTION WIDTH 16.2 % (11.5-14.5)
[2024-12-12 05:23] LABS: ALBUMIN 2.2 G/DL (3.4-5.0); ANION GAP 9 (8-16); BLOOD UREA NITROGEN 28 MG/DL (7-18); BUN/CREATININE RATIO 18.8 (10.0-20.0); CALCIUM 8.3 MG/DL (8.5-10.1); CHLORIDE 100 MMOL/L (99-107); CREATININE 1.49 MG/DL (0.40-0.90); GLUCOSE 111 MG/DL (70-104); MAGNESIUM 1.4 MG/DL (1.5-2.4); POTASSIUM 3.7 MMOL/L (3.5-5.1); SODIUM 137 MMOL/L (135-145); TOTAL CARBON DIOXIDE 28.5 MMOL/L (24-32); eCRCL 38 ML/MIN; eGFR 37 ML/MIN
[2024-12-12] MEDS: spironolactone 25 MG tablet PO SCH (08:00)
[2024-12-12] MEDS: magnesium Cl slow-release 64mg tablet PO PRN (08:09)
[2024-12-12] MEDS ORDERED: levoTHYROXINE 125mcg tablet PO SCH (11:19)
[2024-12-12] MEDS ORDERED: SPIR25TA PO (11:41)
[2024-12-12] MEDS ORDERED: EMPA10TA PO (11:41)
[2024-12-12] MEDS ORDERED: FURO-150 PO (11:41)
[2024-12-12] MEDS ORDERED: thiamine tablet PO (11:41)
[2024-12-12] MEDS ORDERED: CARV6.253 PO (11:41)
[2024-12-12] MEDS ORDERED: FOLI1TAB27 PO (11:41)
[2024-12-12] MEDS ORDERED: LOSA25TA41 PO (11:41)
--- NOTE | 2024-12-12 12:03 | DISCHARGE SUMMARY-Residence ---
Discharge Summary Providers to CC Resident Creating Document: TARIKSONY MARK, RES ~ Discharge Summary Admission Diagnosis: ACUTE CHF EXACERBATION Hospital Course DATE OF ADMISSION: 12/10/2024 DATE OF DISCHARGE: 12/12/2024 Discharge Diagnosis\Comment: Acute hypoxemic respiratory failure Acute on chronic heart failure with reduced ejection fraction, exacerbation Methamphetamine induced cardiomyopathy AHA: Stage C, NYHA: Class III Ruled out DVT of lower extremities Raynaud's phenomenon Prerenal VALERIO probably secondary to renal tubular stasis versus cardiorenal syndrome Hypomagnesemia Asymptomatic bacteriuria Tobacco use disorder Alcohol use disorder Substance abuse disorder Positive methamphetamines on U tox COPD HTN Prediabetes Ileana/Graves disease Operations\Procedures: None Consultants: None Complications: None Condition on DC: Stable New Medications: Empagliflozin (Jardiance) 10 Mg Tablet 1 TAB PO DAILY for 30 Days, #30 TAB 0 Refills Carvedilol (Carvedilol) 6.25 Mg Tablet 6.25 MG PO BID for 30 Days, #60 TAB Folic Acid* (Folic Acid*) Y Tab 1 MG PO DAILY for 30 Days, #30 TAB Losartan Potassium (Losartan Potassium) 25 Mg Tablet 25 MG PO DAILY for 30 Days, #30 TAB Spironolactone (Aldactone) 25 Mg Tablet 25 MG PO DAILY@0830 for 30 Days, #30 TAB [thiamine tablet] () 100 MG TABLET 100 MG PO DAILY for 30 Days, #30 Changed Medications: Furosemide* (Lasix*) 20 Mg Tablet 1 TAB PO BID for 30 Days, #60 TAB (Changed from: DAILY) Continued Medications: Albuterol (Albuterol) 17 Gm Aerosol Epinephrine (Primatene Mist) 0.125 Mg/Actuation Hfa.aer.ad levothyroxine sodium* (Synthroid*) 25 Mcg Tablet 5 TAB PO DAILY, TAB Methimazole (methimazole tablet) 5 Mg Tablet 2 TAB PO DAILY, TAB 0 Refills Naltrexone Hcl (Naltrexone Hcl) 50 Mg Tablet 1 TAB PO DAILY, TAB Nicotine (Nicotine) 21 Mg/24 Hour Patch.td24 1 PATCH TOP DAILY for smoking cessation, PATCH 0 Refills Tiotropium Br/Olodaterol HCl (Stiolto Respimat Inhal [place]) 2.5 Mcg-2.5 Mcg/Actuation Mist.inhal Tiotropium [place] (Spiriva) 18 Mcg Cap.w.dev 1 CAP INH DAILY, CAP 0 Refills Varenicline Tartrate (Varenicline) 0.5 Mg (11)-1 Mg (42) Tab.ds.pk Discharge Summary: A 43-year-old female with a past medical history of COPD, heart failure with reduced ejection fraction, HTN presented to the ED in view of abnormal echo findings that was done at [facility]. Patient underwent echo this morning which showed hypokinesis/akinesis in one of the heart chambers that the patient is unable to recall. And patient was advised to see emergency department. Patient endorses worsening shortness of breaths on exertion to the point that she feels short of breath walking less than block in contrast to while being able to walk for 6-7 blocks before feeling short of breaths. Patient endorses orthopnea, PND and decreased urine output. Patient denies burning sensation abdominal pain, fever. Patient has while issues edematous bluish discolored lower extremities and upper extremities over the last three weeks. This has been on and off that would go away with no intervention but has been constantly present for the last three weeks. Hospital course: Acute hypoxemic respiratory failure. Acute on chronic heart failure with reduced ejection fraction, exacerbation AHA: Stage C, NYHA: Class III. Chest x-ray: Cardiomegaly. CTA ruled out PE. Elevated pro BNP 08725, normal troponin levels, EKG revealing sinus tachycardia. Received one time dose of IV Lasix 60 mg. Continue IV Lasix 40 mg b.i.d. Strict Is&Os, 1.2 L fluid restriction. Daily weights. GDMT, Started on losartan 25 mg, carvedilol 6.25 mg spironolactone 25 mg. Repeat echo at [facility] shows LVEF of 55% and severely reduced systolic function of the right ventricle. Ruled out DVT lower extremities. arterial ultrasound and vascular ultrasound unremarkable. Prerenal VALERIO probably secondary to renal tubular stasis versus cardiorenal syndrome. Hypomagnesemia. Asymptomatic bacteriuria . Urinalysis positive for nitrites and WBC. Received ceftriaxone. Tobacco use disorder. Nicotine patch. Alcohol use disorder Moderate alcohol withdrawal protocol. Not actively withdrawing today, but anxious. 1 mg Ativan given. Continue IV thiamine, folic acid, multivitamin. Substance abuse disorder. Positive methamphetamines on U tox. visitor services information assistant consulted. She is interested in quitting use of recreational drugs. COPD. DuAilynb p.r.n. hypertension- Started on losartan 25 mg, carvedilol 6.25 mg spironolactone 25 mg. Prediabetes. A1c 6.3. Started on Jardiance 10 mg p.o. daily. Ileana/Graves disease. TSH 53.73 with low T4. Continue home dose of levothyroxine and methimazole. Follow up with feeder/folder and surgeon at [place] for thyroid resection surgery. Lipid panel is unremarkable. Patient improved significantly breathing graham and was hemodynamically stable before being discharged home. Physical examination at discharge: General: Alert, awake, oriented, not in acute distress HEENT: PERRLA, no icterus, pallor, lymphadenopathy, carotid bruit, absent multiple teeth Respiratory system: Equal breath sounds, mild wheezing, no crackles or rhonchi CVS: Sinus tachycardia, S1-S2 heard, grade 4/6 holosystolic murmur present in the mitral area that is radiating to the tricuspid area GI: Soft, nontender, no organomegaly, no guarding/rigidity, bowel sounds present Neuro: No focal neurological deficits present Extremities: Violaceous erythematous, 3+ pitting edema present in bilateral feet, blackish discoloration present, bluish discoloration and erythematous fingers present in bilateral upper extremities Skin: Warm and dry Vital Signs Date Time Temp Pulse Resp B/P (MAP) Pulse Ox O2 Delivery O2 Flow Rate FiO2 12/12/24 11:32 73 16 Room Air 0.0 12/12/24 11:23 96 21 12/12/24 11:00 97.6 105/64 (78) Laboratory Tests Test 12/10/24 20:22 12/10/24 20:58 12/10/24 21:00 12/11/24 00:07 White Blood Count 9.2 X10'3 Red Blood Count 5.04 X10'6 Hemoglobin 16.1 g/dl Hematocrit 47.9 % Mean Corpuscular Volume 95.0 FL Mean Corpuscular Hemoglobin 31.9 PG Mean Corpuscular Hemoglobin Concent 33.6 g/dL Red Cell Distribution Width 16.6 % Platelet Count 190 X10'3 Mean Platelet Volume 9.1 FL Neutrophils (%) (Auto) 62.4 % Lymphocytes (%) (Auto) 29.4 % Monocytes (%) (Auto) 6.6 % Eosinophils (%) (Auto) 0.9 % Basophils (%) (Auto) 0.7 % Neutrophils # (Auto) 5.7 X10'3 Lymphocytes # (Auto) 2.7 X10'3 Monocytes # (Auto) 0.6 X10'3 Eosinophils # (Auto) 0.1 X10'3 Basophils # (Auto) 0.1 X10'3 CBC Comment Sodium Level 143 MMOL/L Potassium Level 4.4 MMOL/L Chloride Level 106 MMOL/L Carbon Dioxide Level 30.3 MMOL/L Anion Gap 7 Blood Urea Nitrogen 22 MG/DL Creatinine 1.41 MG/DL Estimated GFR/1.73 m2 40 ML/MIN BUN/Creatinine Ratio 15.6 Glucose Level 103 MG/DL Hemoglobin A1c 6.3 % Calcium Level 8.8 MG/DL Total Bilirubin 0.7 MG/DL Aspartate Amino Transf (AST/SGOT) 38 U/L Alanine Aminotransferase (ALT/SGPT) 29 U/L Alkaline Phosphatase 148 IU/L Troponin I High Sensitivity 32 ng/L 31 ng/L 34 ng/L Pro-B-Type Natriuretic Peptide 46282 PG/ML Total Protein 6.6 G/DL Albumin 3.1 G/DL Globulin 3.5 G/DL Albumin/Globulin Ratio 0.9 Thyroid Stimulating Hormone (TSH) 53.73 ulU/ml Chemistry Comments Prothrombin Time 11.9 SECONDS INR International Normalized Ratio 1.2 INR Activated Partial Thromboplast Time 28 SECONDS Coagulation Comments Troponin I High Sens Percent Delta 3 % 9 % Troponin I Hi Sens Absolute Change -1 ng/L 3 ng/L Urine Specimen Description Cln catch midstream Urine Color Yellow Urine Clarity Clear Urine pH 6.0 Urine Specific [place] >=1.030 Urine Protein 100 mg/dl Urine Glucose (UA) Negative mg/dl Urine Ketones Negative mg/dl Urine Occult Blood Small Urine Nitrite Positive Urine Bilirubin Negative Urine Urobilinogen 0.2 E.U/dL Urine Leukocyte Esterase Negative Urine RBC 0-2 /HPF Urine WBC 5-10 /HPF Urine Squamous Epithelial Cells Few /LPF Urine Transitional Epithelial Cells Few /HPF Urine Bacteria 4+ /HPF Urine Mucus Few /LPF Volume Urine Centrifuged 10 ml Urine HCG, Qualitative Negative Urine Comment Urine Opiates Screen Negative Urine Methadone Screen Negative Urine Fentanyl Screen Negative Urine Barbiturates Screen Negative Urine Phencyclidine Screen Negative Urine Amphetamines Screen Positive Urine Benzodiazepines Screen Negative Urine Cocaine Screen Negative Urine Cannabinoids Screen Negative Drug Screen Comment Lactic Acid Level 1.3 MMOL/L Test 12/11/24 01:14 12/11/24 02:51 12/12/24 04:58 White Blood Count 8.1 X10'3 7.3 X10'3 Red Blood Count 5.24 X10'6 4.87 X10'6 Hemoglobin 16.7 g/dl 15.7 g/dl Hematocrit 49.5 % 46.4 % Mean Corpuscular Volume 94.4 FL 95.3 FL Mean Corpuscular Hemoglobin 31.8 PG 32.3 PG Mean Corpuscular Hemoglobin Concent 33.7 g/dL 33.9 g/dL Red Cell Distribution Width 16.4 % 16.2 % Platelet Count 170 X10'3 158 X10'3 Mean Platelet Volume 8.5 FL 9.0 FL Neutrophils (%) (Auto) 60.3 % 60.2 % Lymphocytes (%) (Auto) 30.9 % 28.5 % Monocytes (%) (Auto) 6.7 % 7.8 % Eosinophils (%) (Auto) 1.0 % 2.5 % Basophils (%) (Auto) 1.1 % 1.0 % Neutrophils # (Auto) 4.9 X10'3 4.4 X10'3 Lymphocytes # (Auto) 2.5 X10'3 2.1 X10'3 Monocytes # (Auto) 0.5 X10'3 0.6 X10'3 Eosinophils # (Auto) 0.1 X10'3 0.2 X10'3 Basophils # (Auto) 0.1 X10'3 0.1 X10'3 CBC Comment Sodium Level 139 MMOL/L 137 MMOL/L Potassium Level 3.7 MMOL/L 3.7 MMOL/L Chloride Level 103 MMOL/L 100 MMOL/L Carbon Dioxide Level 26.4 MMOL/L 28.5 MMOL/L Anion Gap 10 9 Blood Urea Nitrogen 23 MG/DL 28 MG/DL Creatinine 1.31 MG/DL 1.49 MG/DL Estimated GFR/1.73 m2 43 ML/MIN 37 ML/MIN BUN/Creatinine Ratio 17.6 18.8 Glucose Level 107 MG/DL 111 MG/DL Calcium Level 8.6 MG/DL 8.3 MG/DL Magnesium Level 1.4 MG/DL 1.4 MG/DL Albumin 3.1 G/DL 2.2 G/DL Triglycerides Level 114 MG/DL Cholesterol Level 147 MG/DL LDL Cholesterol 68 MG/DL HDL Cholesterol 55 MG/DL Cholesterol/HDL Ratio 2.7 Free Thyroxine 0.57 NG/DL Chemistry Comments Glucometer 111 mg/dl Arterial ultrasound: No hemodynamically significant stenosis based on peak systolic velocity criteria. Chest x-ray: 1. Cardiomegaly Vascular ultrasound: 1. NO SONOGRAPHIC EVIDENCE FOR DEEP VENOUS THROMBOSIS IN THE BILATERAL LOWER EXTREMITY VEINS. 2. Mild subcutaneous edema in the bilateral lower extremities. CTA chest: 1. No pulmonary embolism. 2. Cardiomegaly and dilated main pulmonary artery. 3. Shotty retroperitoneal lymphadenopathy. Discharge instructions: Follow up with your PCP and die trouble shooter Dr. Emerson in a week. We have prescribed new medications for severely reduced systolic function in the right ventricle. LVEF 55-60%. Continue taking medications for your heart as prescribed. We have also prescribed medications to help with your anxiety related to alcohol withdrawals. Also take vitamins as prescribed. Advised strict abstinence from alcohol and methamphetamines. Return to the ED if you have worsening shortness of breath or swelling in the legs. *Problems/Diagnosis: (1) Methamphetamine abuse Status: Acute (2) Paresthesias in right hand Status: Acute (3) Acute congestive heart failure Status: Acute Total Time Spent on D/C: > 30 Minutes Date of Service: Dec 12, 2024 Billing Provider: JAKOB EVANS MD Common Visit Codes: 72067-MSA/OBS DISCH DAY >30min Problem Qualifiers (1) Acute congestive heart failure: Heart failure type: systolic Qualified Codes: I50.21 - Acute systolic (congestive) heart failure SONY MONTANEZ, RES Dec 12, 2024 12:02 JAKOB EVANS MD Dec 13, 2024 12:00
[2024-12-12] MEDS ORDERED: meclizine 12.5mg tablet PO PRN (12:45)
[2024-12-12] MEDS ORDERED: HYDR-3686 PO (12:45)
[2024-12-12] MEDS ORDERED: MAGN500C4 PO (12:46)
[2024-12-12] MEDS: hydrOXYzine 25 MG tablet PO ONE (13:05)
[2024-12-12] MEDS: nicotine 14mg patch - 24hr TD ONE (16:16)
[2024-12-12] MEDS ORDERED: LORazepam 2 mg/ml vial IV PRN (23:25)
[2024-12-12] MEDS ORDERED: LORazepam 1 MG tablet PO PRN (23:25)
[2024-12-14] MEDS ORDERED: LORazepam 1 MG tablet PO PRN (23:25)
[2024-12-14] MEDS ORDERED: LORazepam 2 mg/ml vial IV PRN (23:25)
[2024-12-15] MEDS ORDERED: thiamine 100mg tablet PO SCH (08:00)
[2024-12-15] MEDS ORDERED: folic acid 1mg tablet PO SCH (08:00)
== END 2024-12-12 16:31 | disposition home or self-care (01) | DRG 133 ==
LOC: ER 20:06 → ED HOLD 22:24 → PCU 3S 12-11 01:23
PROVIDERS: ADMIT Internal Medicine; ATTEND Internal Medicine
DX: J96.01 Acute respiratory failure with hypoxia (principal); N17.0 Acute kidney failure with tubular necrosis; I50.23 Acute on chronic systolic (congestive) heart failure; I11.0 Hypertensive heart disease with heart failure; F10.20 Alcohol dependence, uncomplicated; R73.03 Prediabetes; I25.10 Atherosclerotic heart disease of native coronary artery without angina pectoris; N39.0 Urinary tract infection, site not specified; J44.9 Chronic obstructive pulmonary disease, unspecified; R82.71 Bacteriuria; E83.42 Hypomagnesemia; I42.7 Cardiomyopathy due to drug and external agent; I73.00 Raynaud's syndrome without gangrene; F14.10 Cocaine abuse, uncomplicated; Z87.891 Personal history of nicotine dependence
CPT/HCPCS: 36415; 71045; 71275; 80048; 80053; 80061; 80305; 81001; 81025; 82948; 83036; 83605; 83735; 83880; 84439; 84443; 84484; 85025; 85610; 85730; 87040; 87081; 93005; 93925; 93930; 93970; 94640; 94760; 97161; 97530; 99285; A4615; G0378; J0696; J1644; J1938; J2405; J3411; J3490; Q0177; Q9967

== ENCOUNTER 2024-12-18 12:02 | Inpatient (IN) | payer MEDICAID ==
[~2024-12-18] VITALS: Ht 160 cm; Wt 59.9 kg
[2024-12-18] VITALS (7 sets, daily range): BP systolic 107–120; BP diastolic 76–78; PULSE 67–74; RESP 12–22; O2SAT 95–99
[~2024-12-18 12:02] MED LIST changes: -5-HY100C PO; +ALBU17AE26; +CARV6.253 PO; -DIPH25CA83 PO; +EMPA10TA PO; +EPIN11.7; +FOLI1TAB27 PO; +FURO-150 PO; +HYDR-3686 PO; +LEVO25TA2 PO; +LOSA25TA41 PO; +MAGN500C4 PO; +METH-1026 PO; +NALT50TA5 PO; +NICO-732 TOP; -NITR100C6 PO; +SPIR25TA PO; +TIOT18CA3 INH; +TIOT4MIS3 IH; +VARE1TAB29; +thiamine tablet PO
--- NOTE | 2024-12-18 12:07 | ELECTROCARDIOGRAPH REPORT ---
[facility] Test Date: 2024-12-18 Test Time: 12:06:01 Pat Name: ROGER GUTIERREZ Department: EMERGENCY ROOM Room: Gender: F [employer] Manager: DORCAS : [id number] Requested By: VAUGHN KING Order Number: [id number] Reading MD: Measurements Intervals [place] Rate: 63 P: 68 NH: 158 QRS: 111 QRSD: 91 T: -74 QT: 461 QTc: 472 Interpretive Statements Sinus rhythm Biatrial enlargement RVH with secondary repolarization abnrm Nonspecific T abnormalities, lateral leads Please click the below link to view image of tracing.
--- NOTE | 2024-12-18 12:16 | Physician Documentation ---
History of Present Illness ~ Chief Complaint: Chest Pain Stated Complaint: CP Time Seen by MD: 12:49 Primary Medical Doctor: Juan Diego GAYLE This is a 49-year-old female with history of and who presents with approximately 40 minutes of sternal chest pain that radiates to her back and bilateral shoulders described as pressure, reports onset was while having a argument with her spouse. Patient reports feeling of shortness of breath that onset of symptoms however shortness breath has resolved, patient reports feeling of nausea and lightheadedness. Patient is noted to have alex colored lower extremities, on questioning patient reports that she does have history of circulation problems though her feet are much darker than normal. Patient was recently admitted and discharged from hospital for CHF and alcohol withdrawal. Based on the records she has class three CHF. She also endorses having COPD. 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 She was also a heavy former alcohol user but has been clean for the past week as well. Medication Reconciliation Allergies: Coded Allergies: No Known Allergies (Unverified , 12/21/23) Scheduled Carvedilol (Carvedilol), 6.25 MG PO BID Empagliflozin (Jardiance), 1 TAB PO DAILY Folic Acid* (Folic Acid*), 1 MG PO DAILY Furosemide* (Lasix*), 1 TAB PO BID Hydroxyzine Hcl (Atarax), 1 TAB PO Q8H Losartan Potassium (Losartan Potassium), 25 MG PO DAILY Magnesium Oxide (Magnesium), 500 MG PO DAILY Methimazole (methimazole tablet), 2 TAB PO DAILY, (Reported) Naltrexone Hcl (Naltrexone Hcl), 1 TAB PO DAILY, (Reported) Nicotine (Nicotine), 1 PATCH TOP DAILY, (Reported) Spironolactone (Aldactone), 25 MG PO DAILY@0830 Tiotropium [place] (Spiriva), 1 CAP INH DAILY, (Reported) [thiamine tablet], 100 MG PO DAILY levothyroxine sodium* (Synthroid*), 5 TAB PO DAILY, (Reported) Miscellaneous Medications Albuterol (Albuterol), (Reported) Epinephrine (Primatene Mist), (Reported) Tiotropium Br/Olodaterol HCl (Stiolto Respimat Inhal [place]), (Reported) Varenicline Tartrate (Varenicline), (Reported) Past Medical History Past Medical History: Anemia, Kidney Stones, Thyroid (unspecified), MRSA Abscess Past Surgical History: noncontributory Patient History: FH: hypothyroidism CHILD sister FH: hypothyroidism CHILD sister FH: skin cancer Graves' disease MOTHER, Age: 75 Ileana thyroiditis MOTHER, Age: 75 Alcohol Use: Abuse Drug Use: cocaine Lives with: Family Lives In: Home Occupation: employed Review of Systems All Other Systems at this time: Reviewed and Negative Physical Exam Vital Signs: Temperature: 96.9, Source: Temporal, Heart Rate: 64, Respiratory Rate: 18, BP: 88/56, Pulse Oximetry: 98, Weight: 65.550 Oxygen Flow Rate: 0 Physical Exam I have reviewed the triage vitals. CONST: Well developed and well nourished. In no acute distress HENT: Head Atraumatic EYES: Pupils are equal, round and reactive to light. Normal conjunctiva NECK: Normal range of motion. Supple. CARDIO: Normal rate and regular rhythm. No murmurs, rubs, or gallops. S1, S2. PULM/CHEST: No respiratory distress. Lungs clear to auscultation. No wheeze ABD: Soft and nontender. Nondistended. Bowel sounds normal. No guarding. : Exam deferred MSK: No edema. No deformity. NEURO: Alert and oriented to person, place and time. Moving all extremities SKIN: Skin is mottled and slightly cyanotic at the extremities. PSYCH: Normal mood and affect. Good eye contact. Procedures Central Line Lumen: Quadruple Central Line Procedure: betadine prep, sterile drapes applied, sterile dressing applied Position: internal jugular (R) Anesthesia: Lidocaine Volume Anesthetic (ccs): 5 Complications: none Post Position: sutured, good blood return, position confirmed w/ CXR Tolerated Procedure Well?: yes, no complications Procedure Note Seldinger technique Progress Results/Orders Results/Orders Orders - VAUGHN KING MD Chest,Single View (12/18/24 12:03) Monitor (12/18/24 12:03) Saline Lock (12/18/24 12:03) Oxygen (12/18/24 12:03) Electrocardiogram (12/18/24 12:50) Culture Blood (12/18/24 12:50) Cta Chest Pe (12/18/24 16:40) Norepinephrine 8mg/ 250ml Ns (Norepineph (12/18/24 14:55) Chest,Single View (12/18/24 18:55) Completed Orders - VAUGHN KING MD Chest,Single View (12/18/24 12:03) Cbc/Diff (12/18/24 12:03) BMP (12/18/24 12:03) Electrocardiogram (12/18/24 12:03) Hs Troponin I W Calculations (12/18/24 12:03) Hs Troponin I W Calculations (12/18/24 14:03) Hs Troponin I W Calculations (12/18/24 15:03) PTT (12/18/24 12:04) Pt Inr (12/18/24 12:04) CK (12/18/24 12:50) CKMB (12/18/24 12:50) Lipase (12/18/24 12:50) MG (12/18/24 12:50) Myoglobin (12/18/24 12:50) Lacticsepsis (12/18/24 12:50) Free T4 (12/18/24 12:50) TSH (12/18/24 12:50) Cta Chest Pe (12/18/24 16:40) Normal Saline 1000ml (Sodium Chloride 10 (12/18/24 13:15) Normal Saline 1000ml (Sodium Chloride 10 (12/18/24 13:14) Normal Saline 1000ml (Sodium Chloride 10 (12/18/24 13:14) Piperacillin/Tazo 3.375gm/50ml (Zosyn 3. (12/18/24 13:35) Albuterol 2.5mg/3ml Nebule (Proventil 2. (12/18/24 13:40) * Rt Notification Q1H (12/18/24 13:39) Methylprednisolone Sod Succ (Solumedrol (12/18/24 14:30) Ondansetron Inj. (Zofran 4mg/2ml Vial) (12/18/24 14:30) Norepinephrine 32mg/250ml Bag (Norepinep (12/18/24 14:30) Lactic,2hr (12/18/24 14:33) Iohexol 350mg/Ml 100ml (Omnipaque 350mg/ (12/18/24 15:27) Drug Screen, Urine (12/18/24 17:54) Lorazepam Inj (Ativan Inj) (12/18/24 18:25) Ua W/Microscopic, Cult If Ind (12/18/24 18:03) Medications Received in ER Medications (Trade) Dose Ordered Sig/Nick Route PRN Reason Start Time Stop Time Status Last Admin Dose Admin Sodium Chloride 1,000 ml @ 1,000 mls/hr ONCE ONCE IV 12/18/24 13:15 12/18/24 14:14 DC 12/18/24 13:15 1,000 MLS/HR Sodium Chloride 1,000 ml @ 1,000 mls/hr ONCE STAT IV 12/18/24 13:14 12/18/24 14:13 DC 12/18/24 13:16 1,000 MLS/HR Sodium Chloride 1,000 ml @ 1,000 mls/hr ONCE STAT IV 12/18/24 13:14 12/18/24 14:13 DC 12/18/24 13:38 1,000 MLS/HR Piperacillin/ Tazobactam/ Dextrose 50 ml @ 12.5 mls/hr ONCE ONCE IV 12/18/24 13:35 12/18/24 17:34 DC 12/18/24 13:58 12.5 MLS/HR (Proventil 2.5 MG/3ML nebule) 2.5 mg ONCE ONCE NEB 12/18/24 13:40 12/18/24 13:41 DC 12/18/24 14:35 2.5 MG (SoluMEDROL 125mg inj) 125 mg ONCE ONCE IV 12/18/24 14:30 12/18/24 14:31 DC 12/18/24 14:38 125 MG (Zofran 4mg/2ml vial) 4 mg ONCE ONCE IV 12/18/24 14:30 12/18/24 14:31 DC 12/18/24 14:40 4 MG Norepinephrine Bitartrate 250 ml @ 12.291 mls/ hr [id number] IV 12/18/24 14:55 12/18/24 15:09 12.291 MLS/HR Vital Signs 12/18/24 12/18/24 12/18/24 12/18/24 12:08 13:05 14:37 14:42 Temp 96.9 Pulse 64 68 74 71 Resp 18 16 16 15 B/P (MAP) 88/56 82/57 (65) Pulse Ox 98 95 98 99 O2 Delivery Room Air* Room Air* O2 Flow Rate 0 0 0 FiO2 21 21 12/18/24 12/18/24 12/18/24 12/18/24 15:00 15:09 15:10 15:19 Pulse 67 65 Resp 15 11 18 B/P (MAP) 91/57 91/57 (68) 101/78 (86) Pulse Ox 92 96 12/18/24 12/18/24 12/18/24 12/18/24 15:48 16:00 17:11 18:28 Temp 97.8 Pulse 71 71 68 68 Resp 14 12 13 15 B/P (MAP) 99/63 (75) 102/59 (73) 109/77 (88) 113/79 (90) Pulse Ox 96 96 94 92 Laboratory Tests Test 12/18/24 12:08 12/18/24 13:06 12/18/24 14:54 12/18/24 15:59 White Blood Count 8.8 Red Blood Count 5.46 Hemoglobin 17.1 H Hematocrit 51.8 H Mean Corpuscular Volume 94.8 Mean Corpuscular Hemoglobin 31.3 H Mean Corpuscular Hemoglobin Concent 33.0 Red Cell Distribution Width 16.0 H Platelet Count 198 Mean Platelet Volume 8.6 Neutrophils (%) (Auto) 63.8 Lymphocytes (%) (Auto) 24.4 Monocytes (%) (Auto) 8.8 Eosinophils (%) (Auto) 1.7 Basophils (%) (Auto) 1.3 H Neutrophils # (Auto) 5.6 Lymphocytes # (Auto) 2.1 Monocytes # (Auto) 0.8 Eosinophils # (Auto) 0.2 Basophils # (Auto) 0.1 CBC Comment Prothrombin Time 11.1 INR International Normalized Ratio 1.1 Activated Partial Thromboplast Time 28 D-Dimer 0.70 H D-Dimer Comment Coagulation Comments Sodium Level 135 Potassium Level 3.7 Chloride Level 98 L Carbon Dioxide Level 29.7 Anion Gap 7 L Blood Urea Nitrogen 22 H Creatinine 1.39 H Estimated GFR/1.73 m2 40 BUN/Creatinine Ratio 15.8 Glucose Level 108 H Calcium Level 8.8 Troponin I High Sensitivity 22 23 24 Albumin 2.8 L Chemistry Comments Lactic Acid Level 2.2 H 1.5 Magnesium Level 2.1 Total Creatine Kinase 39 Creatine Kinase MB 2.0 Creatine Kinase MB Relative Index Myoglobin 63.0 Lipase 18 Thyroid Stimulating Hormone (TSH) 48.12 H Free Thyroxine 0.74 Troponin I High Sens Percent Delta 4 9 Troponin I Hi Sens Absolute Change 1 2 Test 12/18/24 18:03 Urine Specimen Description Urinal Urine Color Yellow Urine Clarity Clear Urine pH 7.5 Urine Specific [place] 1.010 Urine Protein Trace Urine Glucose (UA) 500 H Urine Ketones Negative Urine Occult Blood Moderate H Urine Nitrite Negative Urine Bilirubin Negative Urine Urobilinogen 0.2 Urine Leukocyte Esterase Negative Urine RBC 3-10 Urine WBC 0-4 Urine Squamous Epithelial Cells Many Urine Transitional Epithelial Cells Many Urine Renal Cells Few Urine Bacteria 1+ Urine Mucus Few Urine Culture Indicated Not ind Volume Urine Centrifuged 10 ml Urine Comment Urine Opiates Screen Negative Urine Methadone Screen Negative Urine Fentanyl Screen Negative Urine Barbiturates Screen Negative Urine Phencyclidine Screen Negative Urine Amphetamines Screen Negative Urine Benzodiazepines Screen Negative Urine Cocaine Screen Negative Urine Cannabinoids Screen Negative Drug Screen Comment Microbiology Date/Time Source Procedure Growth Status 12/18/24 13:16 Blood Hand Right Blood Culture - Preliminary NEGATIVE (LESS THAN 24 HOURS) Resulted EKG/XRAY/CT/US/VASC/MRI EKG : Additional Comment Normal sinus rhythm with a rate of 63 beats per minute, no ischemia, normal axis, EKG interpreted by ED MD Medical Decision Making Findings MSE performed in triage and patient returned to ED lobby by nursing staff Departure Disposition: 09 ADMITTED INPATIENT Admission Level of Care: Critcal Care Impression: Primary Impression: Cardiogenic shock Additional Impressions: Hypotension Congestive heart failure Condition: Critical Referrals: NO PRIMARY CARE PROVIDER (PCP) Critical Care Note Total Time (mins): 149 Critical Care Note The very real possibility of a deterioration of this patient's condition required the highest level of my preparedness for sudden, emergent intervention. I provided critical care services, which included medication orders, frequent reevaluations of the patient's condition and response to treatment, ordering and reviewing test results, and discussing the case with various consultants. Excludes time spent performing separately billable procedures. The critical care time associated with the care of the patient was. EILEEN BAER Dec 18, 2024 12:16 VAUGHN KING MD Dec 18, 2024 13:16
[2024-12-18 12:24] LABS: BASOPHILS # (AUTO) 0.1 X10'3 (0-0.2); BASOPHILS % (AUTO) 1.3 % (0-1); EOSINOPHILS # (AUTO) 0.2 X10'3 (0-0.9); EOSINOPHILS % (AUTO) 1.7 % (0-6); HEMATOCRIT 51.8 % (35.0-45.0); HEMOGLOBIN 17.1 g/dl (12.0-16.0); LYMPHOCYTES # (AUTO) 2.1 X10'3 (1.1-4.8); LYMPHOCYTES % (AUTO) 24.4 % (21-51); MEAN CORPUSCULAR HEMOGLOBIN 31.3 PG (27.0-31.0); MEAN CORPUSCULAR VOLUME 94.8 FL (78-98); MEAN PLATELET VOLUME 8.6 FL (7.4-10.4); MONOCYTES # (AUTO) 0.8 X10'3 (0-0.9); MONOCYTES % (AUTO) 8.8 % (2-12); NEUTROPHILS # (AUTO) 5.6 X10'3 (1.8-7.7); NEUTROPHILS % (AUTO) 63.8 % (42-75); PLATELET COUNT 198 X10'3 (140-440); RED BLOOD COUNT 5.46 X10'6 (4.20-5.60); WHITE BLOOD COUNT 8.8 X10'3 (4.5-11.0)
[2024-12-18 12:34] LABS: ALBUMIN 2.8 G/DL (3.4-5.0); ANION GAP 7 (8-16); BLOOD UREA NITROGEN 22 MG/DL (7-18); BUN/CREATININE RATIO 15.8 (10.0-20.0); CALCIUM 8.8 MG/DL (8.5-10.1); CHLORIDE 98 MMOL/L (99-107); CREATININE 1.39 MG/DL (0.40-0.90); GLUCOSE 108 MG/DL (70-104); POTASSIUM 3.7 MMOL/L (3.5-5.1); SODIUM 135 MMOL/L (135-145); TOTAL CARBON DIOXIDE 29.7 MMOL/L (24-32); eCRCL 41 ML/MIN; eGFR 40 ML/MIN
[2024-12-18 12:37] LABS: APTT 28 SECONDS (22-32); INR 1.1 INR; PROTHROMBIN TIME 11.1 SECONDS (9.0-12.0)
--- NOTE | 2024-12-18 12:39 | RADIOLOGY REPORT ---
EXAM: DI CHEST,SINGLE VIEW HISTORY: CP COMPARISON: DI CHEST,SINGLE VIEW on DOS: 12/10/24, DI CHEST,SINGLE VIEW on DOS: 12/21/23, CT scan of th e chest dated 12/11/2024. TECHNIQUE: PA upright view of the chest was performed. FINDINGS: No pneumothorax, consolidative infiltrates, or pulmonary edema. The heart is enlarged. The central p ulmonary arteries are ectatic. IMPRESSION: 1. No acute intrathoracic process. 2. Cardiomegaly and pulmonary arterial hypertension.
[2024-12-18] MEDS: normal saline 1000ml 1,000 ML IV ONE (13:15)
[2024-12-18] MEDS: normal saline 1000ml 1,000 ML IV STA ×2 (13:16→13:38)
[2024-12-18] MEDS ORDERED: methylPREDNISolone sod succ 125mg/2ml vial IV ONE (13:40)
[2024-12-18 13:51] LABS: CREATINE KINASE 39 U/L (26-192); FREE T4 (FREE THYROXINE) 0.74 NG/DL (0.73-1.40); LIPASE 18 U/L (16-77); MAGNESIUM 2.1 MG/DL (1.5-2.4); THYROID STIMULATING HORMONE 48.12 ulU/ml (0.34-4.50)
[2024-12-18] MEDS: piperacillin/tazo 3.375gm/50ml 50 ML IV ONE (13:58)
[2024-12-18] MEDS ORDERED: NORepinephrine 32mg/250mL bag 250 ML IV SCH (14:30)
[2024-12-18] MEDS: albuterol 2.5 MG/3 ML nebule NEB ONE (14:35)
[2024-12-18] MEDS: methylPREDNISolone sod succ 125mg/2ml vial IV ONE (14:38)
[2024-12-18] MEDS: ondansetron/PF 4mg/2ml inj IV ONE (14:40)
[2024-12-18] MEDS: NORepinephrine 8mg/ 250ml NS 250 ML IV SCH (15:09)
[2024-12-18] MEDS ORDERED: iohexol 350MG/ML 100ml bottle IV ONE (15:27)
--- NOTE | 2024-12-18 17:29 | RADIOLOGY REPORT ---
CTA Chest with intravenous contrast INDICATION: r/o PE and dissection COMPARISON: CT CTA CHEST PE W/ IV CONTRAST on DOS: 12/11/24, CT CTA CHEST PE on DOS: 12/21/23 TECHNIQUE: Multidetector spiral CTA of the chest was performed of the chest with intravenous contrast . PULMONARY ANGIOGRAPHY PROTOCOL was utilized using a bolus-tracking technique centered on the main p ulmonary artery. Axial, coronal and sagittal multiplanar and MIP reformats were performed. CONTRAST: Type of contrast: Omni 350 Contrast injected: 100 ml Radiation dose : Chest: CTDI volume is 58 mGy. Dose-length product is 508 mGy*cm The dose indicators for CT are the volume computed Tomography (CT) dose Index (CTDIvol) and the dose Length product (DLP), and are measured in units of mGy and mGy-cm, respectively. These indicators are not patient dose, but values generated from the CT scanner acquisition factors. The report includes radiation exposure data for exposures received during this examination. Findings: Pulmonary artery: No pulmonary embolism. Main pulmonary artery is dilated measuring up to 39 mm. Lower neck: Normal thyroid. Lungs: No focal consolidation, pleural effusion or pneumothorax. Atelectasis and scarring in the lung bases. Heart/Vascular Structures: Mild cardiomegaly with dilation of the right atrium and ventricle. Lymph Nodes: No adenopathy Pleura: No pleural effusion or significant pneumothorax. Musculoskeletal: No acute osseous abnormality. Soft tissues: Normal. Upper abdomen: Limited portions of the upper abdomen are unremarkable. IMPRESSION: 1. No pulmonary embolism. No aortic aneurysm or dissection. Dilated main pulmonary artery and dilated right heart suggesting pulmonary arterial hypertension. Clinical correlation and continued follow-u p is recommended. 2. No suspicious nodule or consolidation. Atelectasis and scarring in the lung bases. HS:Y
[2024-12-18] MEDS ORDERED: magnesium sulf-water 2g/50mL 50 ML IV PRN (18:10)
[2024-12-18] MEDS ORDERED: magnesium hydroxide 30ml (MOM) UD suspension PO PRN (18:10)
[2024-12-18] MEDS ORDERED: magnesium sulf-water 4G/100mL 100 ML IV PRN (18:10)
[2024-12-18] MEDS ORDERED: potassium Cl 40MEQ/1/2NS 520ml 520 ML IV PRN (18:10)
[2024-12-18] MEDS ORDERED: magnesium Cl slow-release 64mg tablet PO PRN (18:10)
[2024-12-18] MEDS ORDERED: potassium Cl 20 mEq SR tablet PO PRN ×2 (18:10)
[2024-12-18] MEDS ORDERED: mag hydrox/Alum hydrox/simeth 30ml oral suspension PO PRN (18:10)
[2024-12-18] MEDS ORDERED: ondansetron/PF 4mg/2ml inj IV PRN (18:10)
--- NOTE | 2024-12-18 18:28 | HISTORY AND PHYSICAL ---
History of Present Illness History of present illness 49-year-old female presenting with a one day history of dyspnea and chest pain that radiated to her back neck and shoulder. She also felt like throwing up in his had diaphoresis. The patient was recently treated here at [facility] and she tells me that she left against medical advice. She was however found to have an EF of 40% with left ventricular anteroseptum hypokinesis. She was found to be severely hypotensive in the emergency department and received some fluid resuscitation. She was started on norepinephrine drip. She had a CTA of the chest that was unremarkable for pulmonary embolism nor parenchymal disease of the lung. Expected to stay > 48 hours Yes Reason for Visit: Evaluation for ICU admission Chief complaint Dyspnea and chest pain Source: Patient Past Medical History Past medical history Ileana's and Graves disease, scheduled for thyroidectomy [place] COPD Heart failure with a reduced ejection fraction Prediabetes HTN Past Surgical History Surgical history Dental surgeries. Past Family History Family history Graves' disease MOTHER, Age: 75 Ileana thyroiditis MOTHER, Age: 75 Past Social History Social history Quit smoking and consuming alcohol about seven days ago. Quit using cocaine and amphetamines about seven days ago. Medications Home Meds Active Scripts Magnesium Oxide (Magnesium) 500 Mg Capsule, 500 MG PO DAILY for 30 Days, #30 CAP Prov:SONY MONTANEZ, RES 12/12/24 Hydroxyzine Hcl (Atarax) 25 Mg Tablet, 1 TAB PO Q8H for anxiety for 30 Days, #90 TAB 0 Refills Prov:SONY MONTANEZ, RES 12/12/24 Empagliflozin (Jardiance) 10 Mg Tablet, 1 TAB PO DAILY for 30 Days, #30 TAB 0 Refills Prov:SONY MONTANEZ, RES 12/12/24 Carvedilol (Carvedilol) 6.25 Mg Tablet, 6.25 MG PO BID for 30 Days, #60 TAB Prov:SONY MONTANEZ, RES 12/12/24 Losartan Potassium (Losartan Potassium) 25 Mg Tablet, 25 MG PO DAILY for 30 Days, #30 TAB Prov:SONY MONTANEZ, RES 12/12/24 Spironolactone (Aldactone) 25 Mg Tablet, 25 MG PO DAILY@0830 for 30 Days, #30 TAB Prov:SONY MONTANEZ, RES 12/12/24 [thiamine tablet] 100 MG TABLET No Conflict Check, 100 MG PO DAILY for 30 Days, #30 Prov:MONTANEZ,SONY JAS, RES 12/12/24 Folic Acid* (Folic Acid*) Y Tab, 1 MG PO DAILY for 30 Days, #30 TAB Prov:MONTANEZ,SONY JAS, RES 12/12/24 Furosemide* (Lasix*) 20 Mg Tablet, 1 TAB PO BID for 30 Days, #60 TAB Prov:MONTANEZ,SONY JAS, RES 12/12/24 Reported Medications levothyroxine sodium* (SYNTHROID*) 25 Mcg Tablet, 5 TAB PO DAILY, TAB 12/10/24 Tiotropium [place] (Spiriva) 18 Mcg Cap.w.dev, 1 CAP INH DAILY, CAP 0 Refills 12/10/24 Epinephrine (Primatene Mist) 0.125 Mg/Actuation Hfa.aer.ad 12/10/24 Naltrexone Hcl (Naltrexone Hcl) 50 Mg Tablet, 1 TAB PO DAILY, TAB 12/10/24 Methimazole (methimazole tablet) 5 Mg Tablet, 2 TAB PO DAILY, TAB 0 Refills 12/10/24 Nicotine (NICOTINE) 21 Mg/24 Hour Patch.td24, 1 PATCH TOP DAILY for smoking cessation, PATCH 0 Refills 12/10/24 Tiotropium Br/Olodaterol HCl (Stiolto Respimat Inhal [place]) 2.5 Mcg-2.5 Mcg/Actuation Mist.inhal 12/10/24 Varenicline Tartrate (Varenicline) 0.5 Mg (11)-1 Mg (42) Tab.ds.pk 12/10/24 Albuterol (Albuterol) 17 Gm Aerosol 12/10/24 Current medications Current Medications Sodium Chloride 1,000 ml @ 1,000 mls/hr ONCE ONCE IV Last administered on 12/18/24at 13:15; Start 12/18/24 at 13:15; Stop 12/18/24 at 14:14; Status DC Sodium Chloride 1,000 ml @ 1,000 mls/hr ONCE STAT IV Last administered on 12/18/24at 13:16; Start 12/18/24 at 13:14; Stop 12/18/24 at 14:13; Status DC Sodium Chloride 1,000 ml @ 1,000 mls/hr ONCE STAT IV Last administered on 12/18/24at 13:38; Start 12/18/24 at 13:14; Stop 12/18/24 at 14:13; Status DC Piperacillin/ Tazobactam/ Dextrose 50 ml @ 12.5 mls/hr ONCE ONCE IV Last administered on 12/18/24at 13:58; Start 12/18/24 at 13:35; Stop 12/18/24 at 17:34; Status DC Methylprednisolone Sodium Succinate (SoluMEDROL 125mg inj) 125 mg ONCE ONCE IV ; Start 12/18/24 at 13:40; Stop 12/18/24 at 13:41; Status Cancel Albuterol (Proventil 2.5 MG/3ML nebule) 2.5 mg ONCE ONCE NEB Last administered on 12/18/24at 14:35; Start 12/18/24 at 13:40; Stop 12/18/24 at 13:41; Status DC Methylprednisolone Sodium Succinate (SoluMEDROL 125mg inj) 125 mg ONCE ONCE IV Last administered on 12/18/24at 14:38; Start 12/18/24 at 14:30; Stop 12/18/24 at 14:31; Status DC Ondansetron HCl (Zofran 4mg/2ml vial) 4 mg ONCE ONCE IV Last administered on 12/18/24at 14:40; Start 12/18/24 at 14:30; Stop 12/18/24 at 14:31; Status DC Norepinephrine Bitartrate 250 ml @ 0 mls/hr Q0M IV ; Start 12/18/24 at 14:30; Stop 12/18/24 at 14:51; Status DC Norepinephrine Bitartrate 250 ml @ 12.291 mls/ hr [id number] IV Last administered on 12/18/24at 15:09; Start 12/18/24 at 14:55 Iohexol (Omnipaque 350mg/ ml polymer 100ml) 100 ml STK-MED ONCE IV ; Start 12/18/24 at 15:27; Stop 12/18/24 at 15:27; Status DC Heparin Sodium (Porcine) (heparin, porcine 5000 unit/ ml 1ml vial) 5,000 unit Q8H SQ ; Start 12/19/24 at 00:00; Status UNV Heparin Sodium (Porcine) (heparin, porcine 5000 unit/ ml 1ml vial) 5,000 unit Q8H SQ ; Start 12/19/24 at 00:00; Status UNV Ondansetron HCl (Zofran 4mg/2ml vial) 4 mg Q6H PRN IV nausea/vomiting; Start 12/18/24 at 18:10; Status UNV Acetaminophen (Tylenol tablet) 650 mg Q6H PRN PO Fever above 101; Start 12/18/24 at 18:10; Status UNV Al Hydroxide/Mg Hydroxide (Maalox oral suspension) 30 ml Q4H PRN PO indigestion/dyspepsia; Start 12/18/24 at 18:10; Status UNV Docusate Sodium (Colace capsule) 100 mg BID PO ; Start 12/18/24 at 20:00; Status UNV Magnesium Hydroxide (milk of magnesia oral suspension) 30 ml DAILY PRN PO constipation; Start 12/18/24 at 18:10; Status UNV Potassium Chloride (K-DUR tablet) 20 meq Q4H PRN PO Potassium 3.1-3.4; Start 12/18/24 at 18:10; Stop 12/21/24 at 18:09; Status UNV Potassium Chloride (K-DUR tablet) 40 meq Q4H PRN PO Potassium 3.0 or less; Start 12/18/24 at 18:10; Stop 12/21/24 at 18:09; Status UNV Magnesium Chloride (Slow-Mag tablet) 128 mg BID PRN PO Mag 1.4 or less & can take PO; Start 12/18/24 at 18:10; Stop 12/21/24 at 18:09; Status UNV Magnesium Sulfate 50 ml @ 25 mls/hr PRN PRN IV MAG 1.4 OR LESS & NPO; Start 12/18/24 at 18:10; Stop 12/21/24 at 18:09; Status UNV Magnesium Sulfate 100 ml @ 25 mls/hr DAILY PRN IV Mag 1.4 or less & NPO; Start 12/18/24 at 18:10; Stop 12/21/24 at 18:09; Status UNV Potassium Chloride 520 ml @ 130 mls/hr PRN PRN IV Potassium 3.4 or less; Start 12/18/24 at 18:10; Stop 12/21/24 at 18:09; Status UNV Lactated Ringer's 1,000 ml @ 150 mls/hr Q6H40M IV ; Start 12/18/24 at 18:10; Status UNV Review of Systems Review of Systems Review of Systems A 14 point review of systems was obtained that is as in history of present illness and past medical history. Allergies: Coded Allergies: No Known Allergies (Unverified , 12/21/23) Exam Vital signs Vital Signs Date Time Temp Pulse Resp B/P (MAP) Pulse Ox O2 Delivery O2 Flow Rate FiO2 12/18/24 17:11 97.8 68 13 109/77 (88) 94 12/18/24 16:00 71 12 102/59 (73) 96 12/18/24 15:48 71 14 99/63 (75) 96 12/18/24 15:19 65 18 101/78 (86) 96 12/18/24 15:10 67 11 91/57 (68) 92 12/18/24 15:09 91/57 12/18/24 14:42 71 15 99 Room Air* 0 21 12/18/24 14:37 74 16 98 Room Air* 0 21 12/18/24 13:05 68 16 82/57 (65) 95 12/18/24 12:08 96.9 64 18 88/56 98 0 Physical exam General: General: Alert, awake, oriented, not in acute distress HEENT: PERRLA, no icterus, pallor, lymphadenopathy, carotid bruit, absent multiple teeth Respiratory system: Bilateral vesicular breath sounds heard, bilateral basal Creps, crackles heard in bilateral all lung regions CVS: Sinus tachycardia, S1-S2 heard, grade 4/6 holosystolic murmur present in the mitral area that is radiating to the tricuspid area GI: Soft, nontender, no organomegaly, no guarding/rigidity, bowel sounds present Neuro: No focal neurological deficits present Extremities: Violaceous erythematous of the feet, 1+ pitting edema present in bilateral feet, with poor capillary refill of the toes Skin: Warm and dry Laboratory Results Laboratory Tests 12/18/24 12:08 Chemistry Test 12/18/24 12:08 12/18/24 13:06 Albumin 2.8 G/DL (3.4-5.0) L Calcium Level 8.8 MG/DL (8.5-10.1) Magnesium Level Pending 2.1 MG/DL (1.5-2.4) Total Creatine Kinase Pending 39 U/L (26-192) Coagulation Test 12/18/24 12:08 Prothrombin Time 11.1 SECONDS (9.0-12.0) INR International Normalized Ratio 1.1 INR Activated Partial Thromboplast Time 28 SECONDS (22-32) D-Dimer 0.70 MG/L FEU (0-0.50) H D-Dimer Comment Coagulation Comments Lipid panel Test 12/18/24 12:08 12/18/24 13:06 Lipase Pending 18 U/L (16-77) HgA1c, TSH Test 12/18/24 13:06 Thyroid Stimulating Hormone (TSH) 48.12 ulU/ml (0.34-4.50) H Microbiology Microbiology 12/18/24 Blood Culture - Preliminary, Resulted NEGATIVE (LESS THAN 24 HOURS) Assessment/Plan Plan Hypotension Azotemia with elevated BUN and creatinine CKD Erythrocytosis suggesting hemoconcentration Unstable angina: EKG unremarkable for ischemia. Serial troponins are flat i.e. unremarkable . Most recent echocardiogram revealed an EF of 40% with hypokinesis of the left anteroseptum. Cocaine/amphetamine : Patient reports being abstinent for about seven days History of Ileana's thyroiditis: On levothyroxine at 25 mcg daily. Supposed to go to [place] for thyroidectomy. Plan: Continue lactated Ringer's at 150 mL/hour Repeat echocardiogram Obtain Cardiology consult in a.m. Obtain a urine tox screen Check TSH Central line to be inserted by ED physician. Titrate norepinephrine drip to maintain a map of at least 65 mmHg. Overall prognosis: Guarded Critical care time 35 minutes. VTE VTE Risk Score VTE Risk Score Reference Ranges: Score 0-1 = Low Risk (Aggressive mobilization; early ambulation; no VTE prophylaxis required) Score 2: Moderate Risk (Intermittent/Pneumatic Compression Device OR Lovenox/Heparin/Coumadin) Score 3-4: High Risk (Intermittent/Pneumatic Compression Device AND Lovenox/Heparin/Coumadin) Score > or = 5: Highest Risk (Intermittent/Pneumatic Compression Device AND Lovenox/Heparin/Coumadin) KELLY OLSEN MD Dec 18, 2024 18:28
[2024-12-18 18:36] LABS: BILIRUBIN,URINE NEGATIVE (Neg); CLARITY,URINE CLEAR (Clear); COLOR,URINE YELLOW (Yellow); GLUCOSE, URINE 500 mg/dl (Neg); KETONES,URINE NEGATIVE (Neg); LEUKOCYTE ESTERASE ,URINE NEGATIVE (Neg); NITRITES, URINE NEGATIVE (Neg); OCCULT BLOOD,URINE MODERATE (Neg); PH,URINE 7.5 (4.8-8.0); PROTEIN,URINE TRACE mg/dl (Neg); UROBILINOGEN,URINE 0.2 E.U/dL (0.2-1.0)
[2024-12-18 18:39] LABS: UA COLLECTION TYPE URINAL
[2024-12-18 18:46] LABS: BACTERIA,URINE 1+ /HPF (Neg); MUCUS STRANDS FEW /LPF (Neg); RENAL CELLS, URINE FEW /HPF; SQUAMOUS EPITHELIAL CELL,UR MANY /LPF (FEW); TRANSITIONAL EPI CELLS,URINE MANY /HPF; WBC,URINE 0-4 /HPF (0-4)
[2024-12-18 18:47] LABS: URINE AMPHETAMINE SCREEN NEGATIVE (Neg); URINE BARBITUATE SCREEN NEGATIVE (Neg); URINE BENZODIAZEPINES SCREEN NEGATIVE (Neg); URINE CANNABINOID SCREEN NEGATIVE (Neg); URINE COCAINE SCREEN NEGATIVE (Neg); URINE METHADONE SCREEN NEGATIVE (Neg); URINE OPIATE SCREEN NEGATIVE (Neg); URINE PHENCYCLIDINE SCREEN NEGATIVE (Neg)
--- NOTE | 2024-12-18 19:48 | RADIOLOGY REPORT ---
CHEST RADIOGRAPH Indication: centrAL LINE PLACEMENT Technique: Single frontal view of the chest was obtained Comparison: DI CHEST,SINGLE VIEW on DOS: 12/18/24, DI CHEST,SINGLE VIEW on DOS: 12/10/24, DI CHEST,SING LE VIEW on DOS: 12/21/23 FINDINGS: Lines and Tubes: Right IJ approach central venous catheter terminating over the distal SVC. Lungs: No focal consolidation. Pleura: No effusion. No pneumothorax. Cardiomediastinal contours: Mild cardiomegaly. Mild prominence of the pulmonary trunk Bones: No acute osseous abnormality. IMPRESSION: Right IJ approach central venous catheter terminating over the distal SVC. Mild prominence of the pulmonary trunk. Correlate for pulmonary arterial hypertension. Mild cardiomegaly. No focal consolidation.
[2024-12-18] MEDS: ringers solution, lacted 1,000 ML IV SCH (19:57)
[2024-12-18] MEDS: K and/or MAG REPLACEMENT MC SCH (20:00)
[2024-12-18] MEDS: docusate sod 100mg capsule PO SCH (20:00)
[2024-12-18] MEDS: acetaminophen 325mg tablet PO PRN (20:49)
[2024-12-18] MEDS: LORazepam 2 mg/ml vial IV ONE (21:22)
[2024-12-19] VITALS (22 sets, daily range): BP systolic 111–131; BP diastolic 69–87; PULSE 68–88; RESP 11–20; TEMP 98.7–98.8; O2SAT 91–99
[2024-12-19] MEDS ORDERED: heparin, porcine 5000 units/ml vial SQ SCH
[2024-12-19] MEDS: heparin, porcine 5000 units/ml vial SQ SCH (00:12)
[2024-12-19 04:30] LABS: BASOPHILS # (AUTO) 0.1 X10'3 (0-0.2); BASOPHILS % (AUTO) 0.8 % (0-1); EOSINOPHILS % (AUTO) 0.2 % (0-6); HEMATOCRIT 52.4 % (35.0-45.0); HEMOGLOBIN 17.4 g/dl (12.0-16.0); LYMPHOCYTES # (AUTO) 1.9 X10'3 (1.1-4.8); LYMPHOCYTES % (AUTO) 14.5 % (21-51); MEAN CORPUSCULAR HEMOGLOBIN 31.2 PG (27.0-31.0); MEAN CORPUSCULAR HGB CONC 33.2 g/dL (33.0-36.5); MEAN CORPUSCULAR VOLUME 93.9 FL (78-98); MEAN PLATELET VOLUME 8.8 FL (7.4-10.4); MONOCYTES # (AUTO) 0.3 X10'3 (0-0.9); MONOCYTES % (AUTO) 2.2 % (2-12); NEUTROPHILS # (AUTO) 10.6 X10'3 (1.8-7.7); NEUTROPHILS % (AUTO) 82.3 % (42-75); PLATELET COUNT 238 X10'3 (140-440); RED BLOOD COUNT 5.58 X10'6 (4.20-5.60); RED CELL DISTRIBUTION WIDTH 16.1 % (11.5-14.5); WHITE BLOOD COUNT 12.9 X10'3 (4.5-11.0)
[2024-12-19 04:46] LABS: ALANINE AMINOTRANSFERASE 51 U/L (12-78); ALBUMIN 2.8 G/DL (3.4-5.0); ALBUMIN/GLOBULIN RATIO 0.7 (1.1-1.5); ALKALINE PHOSPHATASE 137 IU/L (46-116); ANION GAP 9 (8-16); ASPARTATE AMINO TRANSFERASE 37 U/L (10-37); BILIRUBIN,TOTAL 0.7 MG/DL (0.1-1.0); BLOOD UREA NITROGEN 26 MG/DL (7-18); BUN/CREATININE RATIO 21.1 (10.0-20.0); CALCIUM 8.3 MG/DL (8.5-10.1); CHLORIDE 102 MMOL/L (99-107); CREATININE 1.23 MG/DL (0.40-0.90); GLUCOSE 156 MG/DL (70-104); MAGNESIUM 2.2 MG/DL (1.5-2.4); POTASSIUM 4.7 MMOL/L (3.5-5.1); SODIUM 136 MMOL/L (135-145); TOTAL PROTEIN 6.6 G/DL (6.4-8.2); eCRCL 46 ML/MIN; eGFR 47 ML/MIN
--- NOTE | 2024-12-19 11:18 | PROGRESS NOTE ---
Subjective Subjective 49-year-old female presenting with a one day history of dyspnea and chest pain that radiated to her back neck and shoulder. She also felt like throwing up in his had diaphoresis. The patient was recently treated here at [facility] and she tells me that she left against medical advice. She was however found to have an EF of 40% with left ventricular anteroseptum hypokinesis. She was found to be severely hypotensive in the emergency department and received some fluid resuscitation. She was started on norepinephrine drip. She had a CTA of the chest that was unremarkable for pulmonary embolism nor parenchymal disease of the lung. Follow-up 12/19/2024: Patient is seen today and now off Levophed Daily Progress Note Exam Vitals Vital Signs Date Time Temp Pulse Resp B/P (MAP) Pulse Ox O2 Delivery O2 Flow Rate FiO2 12/19/24 09:00 81 17 131/87 (102) 93 Nasal Cannula 2.0 12/19/24 01:00 97.7 12/18/24 14:42 21 Result Diagram: 12/19/24 0415 12/19/24 0415 Exam General: General: Alert, awake, oriented, not in acute distress HEENT: PERRLA, no icterus, pallor, lymphadenopathy, carotid bruit, absent multiple teeth Respiratory system: Bilateral vesicular breath sounds heard, bilateral basal Creps, crackles heard in bilateral all lung regions CVS: Sinus tachycardia, S1-S2 heard, grade 4/6 holosystolic murmur present in the mitral area that is radiating to the tricuspid area GI: Soft, nontender, no organomegaly, no guarding/rigidity, bowel sounds present Neuro: No focal neurological deficits present Extremities: Violaceous erythematous of the feet, 1+ pitting edema present in bilateral feet, with poor capillary refill of the toes Skin: Warm and dry Results Coagulation Studies Laboratory Tests Test 12/18/24 12:08 Prothrombin Time 11.1 SECONDS (9.0-12.0) INR International Normalized Ratio 1.1 INR Activated Partial Thromboplast Time 28 SECONDS (22-32) D-Dimer 0.70 MG/L FEU (0-0.50) H D-Dimer Comment Coagulation Comments VTE VTE Risk Score VTE Risk Score Reference Ranges: Score 0-1 = Low Risk (Aggressive mobilization; early ambulation; no VTE prophylaxis required) Score 2: Moderate Risk (Intermittent/Pneumatic Compression Device OR Lovenox/Heparin/Coumadin) Score 3-4: High Risk (Intermittent/Pneumatic Compression Device AND Lovenox/Heparin/Coumadin) Score > or = 5: Highest Risk (Intermittent/Pneumatic Compression Device AND Lovenox/Heparin/Coumadin) Assessment/Plan Plan Hypotension: Resolved. Azotemia with elevated BUN and creatinine CKD Erythrocytosis suggesting hemoconcentration Unstable angina: EKG unremarkable for ischemia. Serial troponins are flat i.e. unremarkable . Most recent echocardiogram revealed an EF of 40% with hypokinesis of the left anteroseptum. Cocaine/amphetamine : Patient reports being abstinent for about seven days History of Ileana's thyroiditis: On levothyroxine at 25 mcg daily. Supposed to go to [place] for thyroidectomy. Plan: Discontinue lactated Ringer's at 150 mL/hour Repeat echocardiogram to Obtain Cardiology consult today i.e. has regional wall motion abnormality. If not, she will at the very least require a cardiac stress test with Lexiscan before she goes home. Obtain a urine tox screen Continue levothyroxine 25 mcg tablet daily. Central line to be inserted by ED physician. Titrate norepinephrine drip to maintain a map of at least 65 mmHg. Overall prognosis: Guarded Critical care time 35 minutes. Disposition transferred to PCU. KELLY OLSEN MD Dec 19, 2024 11:18
[2024-12-19] MEDS ORDERED: aminophylline 500mg/20ml vial IV PRN (15:25)
[2024-12-19] MEDS ORDERED: metoprolol tartrate 1mg/ml inj IV PRN (15:25)
[2024-12-19] MEDS ORDERED: nitroGLYCERIN 0.4mg SUBLingual tab SL PRN (15:25)
--- NOTE | 2024-12-19 15:30 | CONSULTATION REPORT ---
Consult Providers to CC ~ History of Present Illness Reason for Admit\Complaint: shock History of Present Illness Jose Marquis is a 49-year-old female with past medical history of methamphetamine and cocaine abuse who was admitted to ICU due to shock requiring pressors. She was treated with intravenous bolus fluids and Levophed. Patient is now downgraded to PCU after stabilize blood pressure. On admission, patient reported dyspnea, diaphoresis, chest pain that radiates to her back, neck, and shoulder x 1 day. Patient denies prior ME/CAD, CVA, cardiac arrhythmia, DVT/PE, or GIB. Patient denies palpitations, abdominal pain, n/v/d. Of note, patient left AMA during recent last hospital stay while doing additional diagnostic workups. Allergies: Coded Allergies: No Known Allergies (Unverified , 12/21/23) Home Medications Home Medications Active Magnesium (Magnesium Oxide) 500 Mg Capsule 500 Mg PO DAILY 30 Days Atarax (Hydroxyzine Hcl) 25 Mg Tablet 1 Tab PO Q8H 30 Days Jardiance (Empagliflozin) 10 Mg Tablet 1 Tab PO DAILY 30 Days Carvedilol 6.25 Mg Tablet 6.25 Mg PO BID 30 Days Losartan Potassium 25 Mg Tablet 25 Mg PO DAILY 30 Days Aldactone (Spironolactone) 25 Mg Tablet 25 Mg PO DAILY@0830 30 Days [thiamine tablet] 100 MG Tablet 100 Mg PO DAILY 30 Days Folic Acid* (Folic Acid) Y Tab 1 Mg PO DAILY 30 Days Lasix* (Furosemide) 20 Mg Tablet 1 Tab PO BID 30 Days Reported Synthroid* (Levothyroxine Sodium) 25 Mcg Tablet 5 Tab PO DAILY Spiriva (Tiotropium [place]) 18 Mcg Cap.w.dev 1 Cap INH DAILY Primatene Mist (Epinephrine) 0.125 Mg/Actuation Hfa.aer.ad Naltrexone Hcl 50 Mg Tablet 1 Tab PO DAILY methimazole tablet (Methimazole) 5 Mg Tablet 2 Tab PO DAILY Nicotine 21 Mg/24 Hour Patch.td24 1 Patch TOP DAILY Stiolto Respimat Inhal [place] (Tiotropium Br/Olodaterol HCl) 2.5 Mcg-2.5 Mcg/Actuation Mist.inhal Varenicline (Varenicline Tartrate) 0.5 Mg (11)-1 Mg (42) Tab.ds.pk Albuterol 17 Gm Aerosol Past Medical History Past Medical History Chronic systolic heart failure Methamphetamine and cocaine induced cardiomyopathy Methamphetamine abuse Cocaine abuse Hypothyroidism Ileana's thyroiditis Alcohol use disorder COPD Hypertension Prediabetes Past Surgical History Surgical History Comment Denies Family History Family History: FH: hypothyroidism CHILD sister FH: hypothyroidism CHILD sister FH: skin cancer FH: stomach ulcer MOTHER, Age: 75 Graves' disease MOTHER, Age: 75, Onset:30's - 40 Ileana thyroiditis MOTHER, Age: 75, Onset:30's - 40 Past Social History Social History Comment Alcohol: denies Tobacco: current smoker, 30-pack year history Illicit Drug use: methamphetamine, cocaine Living situation: lives at home with spouse ROS ROS Other than positives in HPI, all 14 review of systems are negative Exam Vitals: Vital Signs Date Time Temp Pulse Resp B/P (MAP) Pulse Ox O2 Delivery O2 Flow Rate FiO2 12/19/24 14:45 84 12/19/24 14:00 12 116/76 (89) 97 Nasal Cannula 2.0 12/19/24 01:00 97.7 12/18/24 14:42 21 General: A&Ox 3, NAD HEENT: Normocephalic, PERRLA Neck: Supple, trachea midline, no JVD Chest: Clear to auscultation bilaterally Cardiovascular: RRR, S1&S2 Abdomen: Soft and nontender Extremities: No cyanosis/clubbing/or edema Central Nervous System: CN II-XII intact, no focal deficits Musculoskeletal: No paraspinal muscle tenderness, no muscle spasm Skin: Warm and intact Diagnostic Data Last Recorded Lab Results: 12/19/24 0415 12/19/24 0415 Diagnostic Data: Laboratory Tests Test 12/18/24 12:08 Prothrombin Time 11.1 SECONDS (9.0-12.0) INR International Normalized Ratio 1.1 INR Activated Partial Thromboplast Time 28 SECONDS (22-32) D-Dimer 0.70 MG/L FEU (0-0.50) H D-Dimer Comment Coagulation Comments Additional Plan Assessment Hypovolemic shock Acute decompensated systolic heart failure Prerenal VALERIO 2/2 shock/vasomotor nephropathy Polycythemia Unstable angina CKD, stage III Hypothyroidism Ileana's thyroiditis COPD, not in acute exacerbation Prediabetes Nicotine dependence -12/19: off Levophed, downgraded to PCU, negative trop series, LDL 68, A1c 6.3%, TSH 48, FT4 wnl, CTA chest negative, TTE mildly reduced systolic function, flattened septum consistent with RV volume/pressure overload, LVEF 45-50%, RVSP 90 mmHg, severely dilated right ventricle and right atrium, severe TV regurgitation -lactic acid normalized after after IVF resuscitation and pressor, pending pBNP Plan -12/19: follow Lexiscan tomorrow am, continue IVF, start statin, aspirin, nitroglycerin, levothyroxine, prn bronchodilators, GDMT as tolerated, nicotine patch I spent a total of 16 minutes on smoking cessation education. I provided extensive counseling regarding smoking cessation. DVT/VTE Prophylaxis: heparin Code Status: Full Code Date of Service: Dec 19, 2024 Billing Provider: LAKHWINDER ROCHA Common Visit Codes: 31650-AIWFUHD INP/OBS CARE (HIGH) Secondary Visit Codes: 85951-TYHUY CHNG SMOKING >10MIN LAKHWINDER ROCHA Dec 19, 2024 15:30
[2024-12-19] MEDS: aspirin 81mg, enteric-coated 1 TAB TABLET.DR PO ONE (15:39)
[2024-12-19] MEDS: LORazepam 1 MG tablet PO PRN (16:10)
[2024-12-19] MEDS ORDERED: CARV-166 PO (16:28)
[2024-12-19] MEDS ORDERED: THIA100T66 PO (16:28)
[2024-12-19] MEDS ORDERED: LEVO125T PO (16:28)
[2024-12-19] MEDS ORDERED: EPIN0.3A3 IM (16:28)
[2024-12-19] MEDS ORDERED: MAGN400C PO (16:28)
[2024-12-19] MEDS ORDERED: METH-375 PO (16:28)
[2024-12-19] MEDS ORDERED: SPIR25TA5 PO (16:28)
[2024-12-19] MEDS ORDERED: ALBU8HFA INH (16:28)
[2024-12-19] MEDS ORDERED: HYDR-3686 PO (16:28)
[2024-12-19] MEDS: ipratropium/albuterol 3ml nebule NEB PRN (17:30)
--- NOTE | 2024-12-19 18:33 | CARDIOLOGY REPORT ---
APPROVED REPORT EXAM: Comprehensive 2D, Doppler, and color-flow Echocardiogram. Patient Location: 2007 Blood Pressure: 121/73 mmHg Heart Rate: 80 bpm Rhythm: Sinus Rhythm Indications Angina/ Chest Pain Hx of Hypertension Congestive Heart Failure Nurse Ldr: NONE Previous echo: 12/21/2023 [facility] EF:40%, sev RV, sev RA, RVSP 120mmHg. 2D Dimensions RVDd 4.4 cm LA Diam3.5 cm RA Minor5.5 cmLVOT Diameter 1.94 (1.8-2.4cm) Ao Asc Diam.3.20 cmIVC 17.00 mm CO 1.6 L/min M-Mode Dimensions Left Atrium(MM) 3.70 (2.5-4.0cm) IVSd 1.19 (0.7-1.1cm) LVDd 3.15 (4.0-5.6cm) Aortic Root 3.28 (2.2-3.7cm) PWd 1.23 (0.7-1.1cm) Aortic Cusp Exc 1.96 (1.5-2.0cm) IVSs 1.30 cm MV EPSS 0.5 (<0.5cm) LVDs 2.39 (2.0-3.8cm) FS (%) 24 % PWs 1.16 cm ESV(Teich) 19.9 ml LVEF(%) 49 (>50%) Biplane 2D LA Volumes LA ESV A4C 41.11 mL/m2 Aortic Valve AoV Peak Ritchie. 108.8 cm/s AoV VTI 18.1 cm AO Peak GR. 4.7 mmHg AO Mean GR. 2 mmHg LVOT VTI 17.68 cm LVOT Peak Ritchie. 100.0 cm/s NERISSA(VTI)/BSA 2.89 cm2/m2 NERISSA (VTI) 2.89 cm2 Mitral Valve MV E Velocity 47.1 cm/s MV Peak Gr. 3 mmHg MV DECEL TIME 184 ms MV A Velocity 77.0 cm/s MV Mean Gr. 1 mmHg MV PHT 56 ms E/A Ratio 0.6 MVA (PHT) 3.93 cm2 MV VMax90.3 cm/sMV VMean49.5 cm/s MVA VTI3.26 cm2MV VTI16.0 cm TDI Lateral E' P. V12.36 cm/s E/Lateral E' 3.8 Tricuspid Valve TR P. Velocity 448 cm/s RAP ESTIMATE 15 mmHg TR Peak Gr. 80 mmHg RVSP 90 mmHg Pulmonary Vein S1 Velocity 69.7 cm/s D2 Velocity 41.2 cm/s PVa Vbwfddff77.5 cm/s PVa [id number] msec LEFT VENTRICLE The LV is reduced in size with normal wall thickness. Overall systolic function is mildly reduced. Se ptum is flattened consistent with RV volume and pressure overload. Overall LVEF is about 50-55%. RIGHT VENTRICLE Right ventricle is severely dilated with severely reduced function. Estimated PA systolic pressure is 90 mmHg. ATRIA The left atrium size is normal. Right atrium is severely dilated. AORTIC VALVE Trileaflet AV appears sclerotic without stenosis or insufficiency. MITRAL VALVE Mild MV annular thickening without stenosis. Trace regurgitation. TRICUSPID VALVE TV appears structurally normal with severe regurgitation. PULMONIC VALVE Normal PV without stenosis, physiologic insufficiency. GREAT VESSELS The aortic root is normal in size. The ascending aorta is normal in size. IVC is normal in size and c ollapses greater than 50% with inspiration. PERICARDIUM Normal pericardium. No pericardial effusion seen. Other Information Study Quality: Adequate Conclusion Overall LVEF is about 50-55%. The LV is reduced in size with normal wall thickness. Overall systolic function is mildly reduced. Septum is flattened consistent with RV volume and pressure overload. Right ventricle is severely dilated with severely reduced function. Estimated PA systolic pressure is 90 mmHg. Trileaflet AV appears sclerotic without stenosis or insufficiency. Mild MV annular thickening without stenosis. Trace regurgitation. TV appears structurally normal with severe regurgitation. Normal PV without stenosis, physiologic insufficiency. Normal pericardium. No pericardial effusion seen.
[2024-12-19] MEDS: atorvastatin 20mg tablet PO SCH (20:55)
[2024-12-20] VITALS (17 sets, daily range): BP systolic 112–158; BP diastolic 49–101; PULSE 64–91; RESP 11–19; TEMP 97.4–98.7; O2SAT 96–100
[2024-12-20 06:14] LABS: BASOPHILS % (AUTO) 0.4 % (0-1); EOSINOPHILS # (AUTO) 0.1 X10'3 (0-0.9); HEMATOCRIT 44.4 % (35.0-45.0); HEMOGLOBIN 14.7 g/dl (12.0-16.0); LYMPHOCYTES # (AUTO) 2.8 X10'3 (1.1-4.8); LYMPHOCYTES % (AUTO) 25.1 % (21-51); MEAN CORPUSCULAR HEMOGLOBIN 31.4 PG (27.0-31.0); MEAN CORPUSCULAR HGB CONC 33.1 g/dL (33.0-36.5); MEAN CORPUSCULAR VOLUME 94.9 FL (78-98); MONOCYTES # (AUTO) 0.7 X10'3 (0-0.9); NEUTROPHILS # (AUTO) 7.6 X10'3 (1.8-7.7); NEUTROPHILS % (AUTO) 67.5 % (42-75); PLATELET COUNT 178 X10'3 (140-440); RED BLOOD COUNT 4.68 X10'6 (4.20-5.60); RED CELL DISTRIBUTION WIDTH 16.1 % (11.5-14.5); WHITE BLOOD COUNT 11.2 X10'3 (4.5-11.0)
[2024-12-20 06:26] LABS: ALANINE AMINOTRANSFERASE 54 U/L (12-78); ALBUMIN 2.5 G/DL (3.4-5.0); ALBUMIN/GLOBULIN RATIO 0.8 (1.1-1.5); ALKALINE PHOSPHATASE 115 IU/L (46-116); ANION GAP 9 (8-16); ASPARTATE AMINO TRANSFERASE 49 U/L (10-37); BILIRUBIN,TOTAL 0.4 MG/DL (0.1-1.0); BLOOD UREA NITROGEN 23 MG/DL (7-18); BUN/CREATININE RATIO 23.7 (10.0-20.0); CALCIUM 7.7 MG/DL (8.5-10.1); CHLORIDE 105 MMOL/L (99-107); CREATININE 0.97 MG/DL (0.40-0.90); GLUCOSE 84 MG/DL (70-104); MAGNESIUM 1.9 MG/DL (1.5-2.4); PHOSPHORUS 2.8 MG/DL (2.3-4.5); POTASSIUM 3.8 MMOL/L (3.5-5.1); SODIUM 140 MMOL/L (135-145); TOTAL PROTEIN 5.7 G/DL (6.4-8.2); eCRCL 59 ML/MIN; eGFR 61 ML/MIN
[2024-12-20] MEDS ORDERED: levoTHYROXINE 25mcg tablet PO SCH (07:00)
[2024-12-20] MEDS: levoTHYROXINE 25mcg tablet PO SCH (08:02)
[2024-12-20] MEDS: aspirin 81mg, enteric-coated 1 TAB TABLET.DR PO SCH (08:02)
[2024-12-20] MEDS: regadenoson 0.4mg/5ml syringe IV PRN (12:04)
[2024-12-20] MEDS: aminophylline 250mg/10ml inj. IV PRN (12:17)
--- NOTE | 2024-12-20 12:46 | PROGRESS NOTE ---
Daily Progress Note Providers to CC ~ Antibiotic Timeout Antibiotic Ordered?: No Objective Vital Signs Date Time Temp Pulse Resp B/P (MAP) Pulse Ox O2 Delivery O2 Flow Rate FiO2 12/20/24 12:25 80 14 132/85 97 Room Air 0.0 12/20/24 08:58 21 12/20/24 07:00 97.8 Result Diagram: 12/20/24 0518 12/20/24 0518 Coagulation Studies Laboratory Tests Test 12/18/24 12:08 Prothrombin Time 11.1 SECONDS (9.0-12.0) INR International Normalized Ratio 1.1 INR Activated Partial Thromboplast Time 28 SECONDS (22-32) D-Dimer 0.70 MG/L FEU (0-0.50) H D-Dimer Comment Coagulation Comments Problem\Assessment\Plan LAKHWINDER ROCHA [employer]OX [employer]DOWNS Dec 20, 2024 12:46
[2024-12-20] MEDS: EMPAGLIFLOZIN 10 MG TABLET PO ONE (14:03)
[2024-12-20] MEDS: furosemide 20 MG/2 ML vial IV ONE (14:07)
--- NOTE | 2024-12-20 15:49 | RADIOLOGY REPORT ---
Procedure: NM NM DERIC SCAN Exam Date: 12/20/2024 10:59 AM Reason for study/Clinical History: unstable angina Comparison Study: None Myocardial Perfusion Study with SPECT Technique: The patient received an intravenous injection of 7.8 mCi of technetium-99m sestamibi whi le at rest. After a short delay, SPECT tomographic images of the heart were obtained. The patient kobi smith went to the stress lab where they received an intravenous Lexiscan utilizing standard protocol. 33 mCi of technetium-99m sestamibi was injected intravenously immediately after the start of the in fusion. Gated SPECT tomographic images of the heart were acquired and processed. Findings: Rotating planar images show no significant attenuation artifact. The left ventricular size is within normal limits. Stress tomographic images demonstrate normal perfusion. Resting tomographic images demonstrate a similar pattern. Gated portion of the study shows normal wall motion and myocardial thickening. The left ventricular ejection fraction is 76%. (normal greater than 50%) Impression: Normal left ventricular size, wall motion, and function, without evidence of infarction or of myocard ium at ischemic risk. The left ventricular ejection fraction is 76%.
--- NOTE | 2024-12-20 18:06 | DISCHARGE SUMMARY ---
Discharge Summary Providers to CC ~ Discharge Summary Admission Diagnosis: shock, resp failure Hospital Course DATE OF ADMISSION: 12/18/24 DATE OF DISCHARGE: 12/20/24 Discharge Diagnosis\Comment: Hypovolemic shock Acute decompensated systolic heart failure Prerenal VALERIO 2/2 shock/vasomotor nephropathy Polycythemia Unstable angina CKD, stage III Hypothyroidism Ileana's thyroiditis COPD, not in acute exacerbation Prediabetes Nicotine dependence Generalized weakness Operations\Procedures: None Consultants: None Complications: Left AMA Condition on DC: Unstable Discharge Summary: Patient examined in the morning. Patient is not medically cleared for discharge. However, patient left AMA in the evening despite explaining risks associated with leaving AMA. 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
[2024-12-21] MEDS ORDERED: EMPAGLIFLOZIN 10 MG TABLET PO SCH (08:00)
[2024-12-21] MEDS ORDERED: furosemide 20 MG/2 ML vial IV SCH (08:00)
--- NOTE | 2024-12-21 09:48 | CARDIOLOGY REPORT ---
APPROVED REPORT EXAM: Limited 2D, Doppler, and color-flow Echocardiogram. 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 90.3 cm/s AoV VTI 14.9 cm AO Peak GR. 3.3 mmHg AO Mean GR. 2 mmHg LVOT VTI 13.02 cm LVOT Peak Ritchie. 67.4 cm/s NERISSA(VTI)/BSA 2.94 cm2/m2 NERISSA (VTI) 2.94 cm2 Mitral Valve MV E Velocity 47.6 cm/s MV Peak Gr. 1 mmHg MV DECEL TIME 204 ms MV A Velocity 83.4 cm/s MV PHT 64 ms E/A Ratio 0.6 MVA (PHT) 3.44 cm2 MV VMax54.0 cm/s TDI Lateral E' P. V7.70 cm/s E/Lateral E' 6.2 Pulmonary Valve PAEDP12.31 mmHg Tricuspid Valve TR P. Velocity 445 cm/s RAP ESTIMATE 10 mmHg TR Peak Gr. 79 mmHg RVSP 89 mmHg Pulmonary Vein S1 Velocity 50.7 cm/s D2 Velocity 38.1 cm/s PVa Ltfpgkws18.0 cm/s PVa Jjddaops01 msec LEFT VENTRICLE Normal LV size and wall thickness. Overall systolic function is normal. Flattened septum consistent w ith right ventricular volume and pressure overload. Overall LVEF is 55%. Unchanged from previous echo . RIGHT VENTRICLE Right ventricle is severely dilated with decreased contractility. Estimated PA systolic pressure of 8 9 mm of mercury. Unchanged from previous echo. ATRIA The left atrium size is normal. Right atrium is severely dilated. Unchanged from previous echo. AORTIC VALVE Trileaflet AV appears mildly sclerotic without stenosis. No insufficiency. Unchanged from previous e cho. MITRAL VALVE Mild mitral annular calcification without stenosis. Trace regurgitation. TRICUSPID VALVE The tricuspid valve is normal in structure with moderate to severe regurgitation. Unchanged from pre vious echo. PULMONIC VALVE The pulmonary valve is normal in structure trace insufficiency. GREAT VESSELS The aortic root is normal in size. The ascending aorta is normal in size. IVC is normal in size and c ollapses less than 50% with inspiration. PERICARDIUM Normal pericardium. No effusion. Unchanged from previous echo. Other Information Study Quality: Adequate Conclusion Overall LVEF is 55%. Unchanged from previous echo. Flattened septum consistent with right ventricular volume and pressure overload. Normal LV size and wall thickness. Overall systolic function is normal. Right ventricle is severely dilated with decreased contractility. Estimated PA systolic pressure of 89 mm of mercury. Unchanged from previous echo. Mild mitral annular calcification without stenosis. Trace regurgitation. The tricuspid valve is normal in structure with moderate to severe regurgitation. Unchanged from pr evious echo. The pulmonary valve is normal in structure trace insufficiency. Normal pericardium. No effusion. Unchanged from previous echo.
== END 2024-12-20 17:20 | disposition left against medical advice (07) | DRG 194 ==
LOC: ER 12:03 → CICU 2S 18:18 → PCU 3S 12-19 14:42
PROVIDERS: ADMIT Internal Medicine Critical Care Medicine; ATTEND Internal Medicine Critical Care Medicine
PROC: B32T1ZZ Computerized Tomography (CT Scan) of Left Pulmonary Artery using Low Osmolar Contrast (ICD-10-PCS; principal; 2024-12-18)
PROC: B3201ZZ Computerized Tomography (CT Scan) of Thoracic Aorta using Low Osmolar Contrast (ICD-10-PCS; 2024-12-18)
PROC: B32S1ZZ Computerized Tomography (CT Scan) of Right Pulmonary Artery using Low Osmolar Contrast (ICD-10-PCS; 2024-12-18)
PROC: 4A02XM4 Measurement of Cardiac Total Activity, External Approach (ICD-10-PCS; 2024-12-20)
PROC: 3E033HZ Introduction of Radioactive Substance into Peripheral Vein, Percutaneous Approach (ICD-10-PCS; 2024-12-20)
DX: I13.0 Hypertensive heart and chronic kidney disease with heart failure and stage 1 through stage 4 chronic kidney disease, or unspecified chronic kidney disease (principal); N17.0 Acute kidney failure with tubular necrosis; R57.0 Cardiogenic shock; I95.9 Hypotension, unspecified; I42.7 Cardiomyopathy due to drug and external agent; I20.0 Unstable angina; E89.0 Postprocedural hypothyroidism; Z53.21 Procedure and treatment not carried out due to patient leaving prior to being seen by health care provider; I50.23 Acute on chronic systolic (congestive) heart failure; F15.10 Other stimulant abuse, uncomplicated; F17.210 Nicotine dependence, cigarettes, uncomplicated; F14.10 Cocaine abuse, uncomplicated; N18.30 Chronic kidney disease, stage 3 unspecified; J44.9 Chronic obstructive pulmonary disease, unspecified; D75.1 Secondary polycythemia; R57.1 Hypovolemic shock; R73.03 Prediabetes; Z79.899 Other long term (current) drug therapy
CPT/HCPCS: 36415; 71045; 78452; 80048; 80053; 80305; 81001; 82550; 82553; 83605; 83690; 83735; 83874; 83880; 84100; 84145; 84439; 84443; 84484; 85025; 85379; 85610; 85730; 87040; 87081; 93005; 93017; 93306; 93308; 94640; 94760; 96361; 96365; 96375; 97116; 97161; 97530; 99285; A6213; A6258; A6449; A9500; C1751; G0378; J0280; J1644; J1938; J2405; J2543; J2785; J2919; J7030; J7120; Q9967

== ENCOUNTER 2025-01-03 08:22 | Outpatient (CLI) | payer MEDICAID ==
[~2025-01-03 08:22] MED LIST changes: -ALBU17AE26; +ALBU8HFA INH; +CARV-166 PO; -CARV6.253 PO; +EPIN0.3A3 IM; -EPIN11.7; +LEVO125T PO; -LEVO25TA2 PO; +MAGN400C PO; -MAGN500C4 PO; -METH-1026 PO; +METH-375 PO; -NALT50TA5 PO; -NICO-732 TOP; -SPIR25TA PO; +SPIR25TA5 PO; +THIA100T66 PO; -TIOT18CA3 INH; -VARE1TAB29; -thiamine tablet PO
--- NOTE | 2025-01-03 09:16 | RADIOLOGY REPORT ---
INDICATION: ABD PAIN TECHNIQUE: Multiple real-time sonographic images of the abdomen were obtained. COMPARISON: None FINDINGS: The liver is homogenous in echogenicity. The liver measures 14.8 cm. No intrahepatic bilia ry ductal dilatation is noted. The gallbladder wall measures 0.4 cm and is unremarkable. No gallstones. Possible sludge. The com mon duct measures 0.4 cm and is unremarkable. No pericholecystic fluid is noted. Negative sonographi c mullins's sign. The right kidney measures 8.7 cm. No hydronephrosis. The left kidney measures 11.6 cm. No hydronephr osis. The spleen measures 9.0 cm, within normal limits. The echogenicity is within normal limits. The pancreas is not well visualized due to obscuration from bowel gas. The visualized portions of the IVC and aorta are grossly unremarkable. IMPRESSION: 1. Gallbladder sludge. No acute cholecystitis. 2. Right renal atrophy.
== END 2025-01-03 23:59 | disposition home or self-care (01) ==
LOC: US 08:22
PROVIDERS: ATTEND Student in an Organized Health Care Education/Training Program
DX: N26.1 Atrophy of kidney (terminal) (principal); K82.8 Other specified diseases of gallbladder; R10.9 Unspecified abdominal pain
CPT/HCPCS: 76700

== ENCOUNTER 2025-01-06 13:17 | Emergency (ER) | payer MEDICAID ==
[~2025-01-06] VITALS: Ht 160 cm; Wt 65.3 kg
[2025-01-06 14:34] LABS: MEAN PLATELET VOLUME 8.1 FL (7.4-10.4); RED CELL DISTRIBUTION WIDTH 16.3 % (11.5-14.5)
[2025-01-06] MEDS ORDERED: NALT50TA5 PO ×2 (14:41→16:50)
[2025-01-06] MEDS ORDERED: MELA1TAB64 (14:41)
[2025-01-06] MEDS ORDERED: CITA10TA15 PO (14:41)
[2025-01-06 14:53] LABS: CREATININE 1.53 MG/DL (0.40-0.90); PRO BRAIN NATRIURETIC PEPTIDE 4470 PG/ML (0-125); TOTAL CARBON DIOXIDE 31.4 MMOL/L (24-32); eCRCL 37 ML/MIN; eGFR 36 ML/MIN
--- NOTE | 2025-01-06 15:28 | RADIOLOGY REPORT ---
CHEST RADIOGRAPH Indication: CP Technique: Single frontal view of the chest was obtained COMPARISON: DI CHEST,SINGLE VIEW on DOS: 12/18/24, DI CHEST,SINGLE VIEW on DOS: 12/18/24, DI CHEST,SING LE VIEW on DOS: 12/10/24, DI CHEST,SINGLE VIEW on DOS: 12/21/23 FINDINGS: Lines and Tubes: None Lungs: Clear Pleura: No effusion. No pneumothorax. Cardiomediastinal contours: Cardiomegaly Bones: Unremarkable IMPRESSION: No acute disease.
--- NOTE | 2025-01-06 16:32 | ELECTROCARDIOGRAPH REPORT ---
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
--- NOTE | 2025-01-06 16:37 | Physician Documentation ---
History of Present Illness ~ Chief Complaint: Chest Pain Stated Complaint: CP Time Seen by MD: 14:15 Primary Medical Doctor: Juan Diego Source: patient Mode of Arrival: POV, Wheelchair Exam Limitations: no limitations HEART Score: 3 HPI 49-year-old female with congestive heart failure, history of alcoholism and methamphetamine abuse, here due to shortness of breath. She states every time she lays flat she feels short of breath and she wakes up at night feeling short of breath. She initially stated that she had gained 30 lb since she was discharged here a month ago however her weight today does not demonstrate that. She does confirm that she was weighed here in the ER today. She states she has been clean from alcohol and methamphetamines for a month now. Patient states she has an appointment to establish care with Dr. Henderson next week. She previously was seen by Dr. Magana but has not seen him since January of 2024. Patient has been taking all of her medication as prescribed. Patient also reports that she has been on thyroid medications prescribed by Dr. Pickett in [place] and that he has recommended a "thyroidectomy" due to her difficult to control thyroid. No chest pain, palpitations, cough, abdominal pain, nausea. Medication Reconciliation Allergies: Coded Allergies: No Known Allergies (Unverified , 12/21/23) Scheduled Carvedilol (Carvedilol), 1 TAB PO DAILY, (Reported) Empagliflozin (Jardiance), 1 TAB PO DAILY Folic Acid* (Folic Acid*), 1 MG PO DAILY Furosemide* (Lasix*), 1 TAB PO BID Levothyroxine Sodium (Synthroid), 1 TAB PO DAILY, (Reported) Losartan Potassium (Losartan Potassium), 25 MG PO DAILY Magnesium Oxide (Magnesium), 1 CAP PO DAILY, (Reported) Methimazole (Methimazole), 1 TAB PO TID, (Reported) Naltrexone Hcl (Naltrexone Hcl), 1 TAB PO DAILY, (Reported) Spironolactone (Spironolactone), 1 TAB PO DAILY, (Reported) Thiamine Hcl (Vitamine B-1), 1 TAB-CAP PO DAILY, (Reported) Tiotropium Br/Olodaterol HCl (Stiolto Respimat Inhal [place]), 2 PUFFS IH DAILY, (Reported) Scheduled PRN Epinephrine (Epinephrine), 1 SYR IM ONCE PRN for ANAPHYLAXIS, (Reported) Hydroxyzine Hcl* (Atarax*), 1 TAB PO Q4H PRN for anxiety, (Reported) albuterol inhaler (Pro-Air Inhaler), 2 PUFFS INH Q4HPRN PRN for wheezing, (Reported) Miscellaneous Medications Citalopram Hydrobromide (Citalopram HBr), PO, (Reported) Melatonin (Melatonin), (Reported) Past Medical History Past Medical History: Anemia, Kidney Stones, Thyroid (unspecified), MRSA Abscess Past Surgical History: noncontributory Patient History: FH: hypothyroidism CHILD sister FH: hypothyroidism CHILD sister FH: skin cancer FH: stomach ulcer MOTHER, Age: 75 Graves' disease MOTHER, Age: 75, Onset: Ileana thyroiditis MOTHER, Age: 75, Onset: - Alcohol Use: Abuse Drug Use: cocaine Lives with: Family Lives In: Home Occupation: employed Review of Systems All Other Systems at this time: Reviewed and Negative Physical Exam Vital Signs: Temperature: 98.5, Source: Temporal, Heart Rate: 68, Respiratory Rate: 12, BP: 108/72, Pulse Oximetry: 99, Weight: 65.350 Oxygen Flow Rate: 0 Physical Exam GENERAL: Alert, no acute distress. HEENT: NCAT, EOMI, PERRL, normal oropharynx, moist oral mucosa. NECK: Supple, trachea midline. CARDIAC: Regular rate and rhythm, no murmurs, rubs, or gallops. Equal distal pulses. No lower extremity edema, cap refill less than 2 seconds. RESPIRATORY: Equal breath sounds, clear to auscultation bilaterally, no respiratory distress. GASTROINTESTINAL: Non distended, soft, nontender, No guarding or rebound. MUSCULOSKELETAL: Normal range of motion, nontender, no swelling. Normal gait. NEUROLOGICAL: Awake, alert, and oriented x 3. SKIN: Warm/dry, no pallor, no rash. PSYCH: Alert and appropriate. Affect congruent with mood. Speech is clear. Good eye contact. Progress Results/Orders Reviewed/noted all lab results: Yes Results/Orders Vital Signs 01/06/25 01/06/25 13:51 14:13 Temp 98.5 Pulse 68 Resp 18 12 B/P (MAP) 108/72 Pulse Ox 99 O2 Flow Rate 0 Laboratory Tests Test 01/06/25 14:18 01/06/25 15:42 White Blood Count 7.7 Red Blood Count 5.26 Hemoglobin 16.5 H Hematocrit 49.0 H Mean Corpuscular Volume 93.1 Mean Corpuscular Hemoglobin 31.4 H Mean Corpuscular Hemoglobin Concent 33.7 Red Cell Distribution Width 16.3 H Platelet Count 247 Mean Platelet Volume 8.1 Neutrophils (%) (Auto) 63.1 Lymphocytes (%) (Auto) 24.6 Monocytes (%) (Auto) 9.3 Eosinophils (%) (Auto) 2.1 Basophils (%) (Auto) 0.9 Neutrophils # (Auto) 4.8 Lymphocytes # (Auto) 1.9 Monocytes # (Auto) 0.7 Eosinophils # (Auto) 0.2 Basophils # (Auto) 0.1 CBC Comment Sodium Level 138 Potassium Level 3.8 Chloride Level 99 Carbon Dioxide Level 31.4 Anion Gap 8 Blood Urea Nitrogen 32 H Creatinine 1.53 H Estimated GFR/1.73 m2 36 BUN/Creatinine Ratio 20.9 H Glucose Level 70 Calcium Level 9.2 Troponin I High Sensitivity 14 15 Pro-B-Type Natriuretic Peptide 4470 H Albumin 3.5 Thyroid Stimulating Hormone (TSH) 4.39 Chemistry Comments Troponin I High Sens Percent Delta 7 Troponin I Hi Sens Absolute Change 1 Re-Evaluation Re-Evaluation : Re-Evaluation: Unchanged Heart Score: Heart Score Response (Comments) Value History Slightly Suspicious 0 EKG Normal 0 Age 45-64 1 Risk Factors >3 or Hx ASHD 2 Troponin Normal limit 0 Total 3 Medical Decision Making Heart Score: 3 Differential Dx:Considerations: Include: angina, aortic dissection, chest wall pain, cholelithiasis, CHF, costochondritis, esophageal reflux/spasm, gastritis, herpes zoster, myocardial infarction, pericarditis, pleuritis, pancreatitis, pneumonia, pneumothorax, pulmonary embolus, other Additional Information Patient's BNP is 4800, last month it was almost 6000 when she was admitted here. Her troponins were normal. Her vitals were stable. Patient had no pleural effusions on her chest x-ray. She appeared euvolemic as she did not have any edema in her lower extremities. Considering her TSH was 48 when it was checked a month ago I felt that we should recheck that while she was here just to make sure that it was trending in the right direction. Patient has good follow up already arranged with Dr. Henderson next week. Patient was evaluated last month with CTA for PE which was negative. Departure Time of Disposition: 16:36 Disposition: 01 HOME / SELF CARE / HOMELESS Impression: Primary Impression: SOB (shortness of breath) Additional Impressions: CHF (congestive heart failure) Qualified Codes: I50.9 - Heart failure, unspecified Renal insufficiency Hypothyroidism Qualified Codes: E03.9 - Hypothyroidism, unspecified Condition: Stable Discharge Instructions: General Discharge Instructions Additional Instructions: Medical reasoning/decision making: Patient's BNP is 4800, last month it was almost 6000 when she was admitted here. Her troponins were normal. Her vitals were stable. Patient's weight is the same as last month. On exam, patient is euvolemic. On chest xray, there are no pleural effusions or vascular congestion. TSH was 48 when it was checked a month ago and today is normal just over 4.0. Patient has good follow up already arranged with Dr. Henderson next week. Next step would be to see Dr. Henderson next week You appear stable Make sure to follow sodium restricted diet Your thyroid test came back normal which is also great news! Refilled your naltrexone to [facility] Referrals: NO PRIMARY CARE PROVIDER (PCP) Prescriptions Naltrexone Hcl (Naltrexone Hcl) 50 Mg Tablet 1 TAB PO DAILY for 30 Days, #30 TAB 0 Refills Prov: TONEY ASHBY 01/06/25 Education Educated: Patient Educated regarding: diagnosis, treatment, need for follow up Signature Scribe Signature: duke Attestation: TONEY Haywood Jan 06, 2025 16:37
[2025-01-06 16:57] VITALS: BP 108/71; PULSE 77; RESP 11; TEMP 98.5; O2SAT 99
== END 2025-01-06 17:01 | disposition home or self-care (01) ==
LOC: ER 13:18
DX: I50.9 Heart failure, unspecified (principal); E03.9 Hypothyroidism, unspecified; N28.9 Disorder of kidney and ureter, unspecified; R06.02 Shortness of breath
CPT/HCPCS: 36415; 71045; 80048; 83880; 84443; 84484; 85025; 93005; 99285

== ENCOUNTER 2025-03-07 13:30 | Outpatient (CLI) | payer MEDICAID ==
[~2025-03-07 13:30] MED LIST changes: +CITA10TA15 PO; +MELA1TAB64; +NALT50TA5 PO
--- NOTE | 2025-03-07 14:33 | RADIOLOGY REPORT ---
CHEST RADIOGRAPH Indication: BORDERLINE CHF Technique: Frontal and lateral view of the chest was obtained Comparison: DI CHEST,SINGLE VIEW on DOS: 01/06/25, DI CHEST,SINGLE VIEW on DOS: 12/18/24, CT CTA CHEST PE W/ IV CONTRAST on DOS: 12/18/24, DI CHEST,SINGLE VIEW on DOS: 12/18/24, CT CTA CHEST PE W/ IV CONTRAST on DOS: 12/11/24 FINDINGS: Lines and Tubes: None Lungs: Clear Pleura: No effusion. No pneumothorax. Cardiomediastinal contours: Unremarkable Bones: Unremarkable IMPRESSION: No evidence of acute disease.
--- NOTE | 2025-03-07 14:52 | RADIOLOGY REPORT ---
ULTRASOUND SOFT TISSUE HEAD AND NECK CLINICAL INDICATION: THYROTOXICOSIS, UNSP WITHOUT THYROTOXIC CRISIS OR STORM TECHNIQUE: Multiple real time sonographic images of the thyroid were obtained. Comparison: None FINDINGS: The right thyroid gland measures 4.2 x 1.4 x 1.3 cm. The left thyroid gland measures approximately 3.4 x 1.1 x 0.9 cm. The isthmus measures 0.5 cm. Diffusely heterogeneous thyroid gland. Multiple bilateral TR 4 hypoechoic nodules are present measuring up to 0.6 cm in the right lower pole and 0.6 cm in the left upper pole. IMPRESSION: Diffusely heterogeneous thyroid gland with multiple bilateral TR 4 hypoechoic nodules measuring up to 0.6 cm. [employer] TI-RADS Categories and Recommendations (2017): TR1: 0 points, Benign, No FNA TR2: 2 points, Not suspicious, No FNA TR3: 3 points, Mildly suspicious, FNA if > or = 2.5 cm, Follow if > or = 1.5 cm TR4: 4-6 points, Moderately Suspicious, FNA if > or = 1.5 cm, Follow if > or = 1.0 cm TR5: 7+ points, Highly Suspicious, FNA if > or = 1.0 cm, Follow if > or = 0.5 cm Follow-up ultrasound guidelines: TR5: yearly for 5 years, if no growth or change in TI-RADS level TR4: at 1, 2, 3 and 5 years, if no growth or change in TI-RADS level TR3: at 1, 3 and 5 years, if no growth or change in TI-RADS level If increased but below threshold for FNA, repeat in one year. Source: A[employer] Thyroid Imaging, Reporting and Data System (TI-RADS): White Paper of the [employer] TI-RADS Committee. Tab fontanez al., J Am Angelina Radiol 2017;14:587-595.
== END 2025-03-07 23:59 | disposition home or self-care (01) ==
LOC: RAD 13:30
PROVIDERS: ATTEND Student in an Organized Health Care Education/Training Program
DX: E04.2 Nontoxic multinodular goiter (principal); R06.09 Other forms of dyspnea; E05.90 Thyrotoxicosis, unspecified without thyrotoxic crisis or storm
CPT/HCPCS: 71046; 76536